=== PATIENT | male | born 1945 | race Caucasian/White ===

== ENCOUNTER 2017-12-08 11:14 | Inpatient (IN) | payer MEDICARE, BC ==
[~2017-12-08] VITALS: Ht 180.3 cm; Wt 90.0 kg
[2017-12-08 11:25] VITALS: BP 136/101; PULSE 116; RESP 32; TEMP 98.5; O2SAT 91
--- NOTE | 2017-12-08 11:28 | PD ---
HPI Chief Complaint: Fall Time Seen by Provider: 11:17 Travel History International Travel<30 days: No Contact w/Intl Traveler<30days: No Traveled to known affect area: No History of Present Illness HPI This 72-year-old male who presents via EMS for evaluation after fall. The patient reports that yesterday he tripped at home and fell, hitting his right hip against a table. He was unable to get off the floor throughout the night and a friend found him this morning. He is currently complaining of right hip pain as well as mild right wrist pain. He believes that his right wrist hit the ground in an effort to break his fall. He denies any head trauma or loss of consciousness. He is denying any headache, neck pain, chest pain, shortness breath, abdominal pain, back pain, numbness or tingling or weakness. He reports that he feels cold. He has no other complaints at this time. [facility] Social History Alcohol Use: No Tobacco Use: No Allergies-Medications (Allergen,Severity, Reaction): Coded Allergies: No Known Allergies (Unverified , 12/08/17) Reported Meds & Prescriptions Reported Meds & Active Scripts Active Reported Lisinopril 2.5 Mg Tab 2.5 Mg PO DAILY Carvedilol 3.125 Mg Tab 3.125 Mg PO BID Review of Systems Except as stated in HPI: all other systems reviewed are Neg Physical Exam Narrative GENERAL: Well-developed well-nourished male in no acute distress answering questions appropriately SKIN: Warm and dry. HEAD: Atraumatic. Normocephalic. EYES: Pupils equal and round. No scleral icterus. No injection or drainage. ENT: No nasal bleeding or discharge. Mucous membranes pink and moist. NECK: Trachea midline. No JVD. CARDIOVASCULAR: Regular rate and rhythm. No murmur appreciated. RESPIRATORY: No accessory muscle use. Clear to auscultation. Breath sounds equal bilaterally. GASTROINTESTINAL: Abdomen soft, non-tender, nondistended. Hepatic and splenic margins not palpable. MUSCULOSKELETAL: Right hip is externally rotated, tender to palpation of the right hip, mild tenderness to palpation of the right wrist with no obvious wrist deformity or range of motion limitation. Distal pulses are intact in the upper and lower extremities. NEUROLOGICAL: Awake and alert. No obvious cranial nerve deficits. Motor grossly within normal limits. Normal speech. PSYCHIATRIC: Appropriate mood and affect; insight and judgment normal. Data Data Last Documented VS Vital Signs Date Time Temp Pulse Resp B/P (MAP) Pulse Ox O2 Delivery O2 Flow Rate FiO2 12/08/17 12:20 97 24 143/71 (95) 96 Nasal Cannula 2.00 12/08/17 11:25 98.5 Orders Orders Hip, Uni(Ap&Lat) W Ap Pelvis (12/08/17 ) Ct Cerv Spine W/O Contrast (12/08/17 ) Complete Blood Count With Diff (12/08/17 11:25) Basic Metabolic Panel (Bmp) (12/08/17 11:25) Ct Brain W/O Iv Contrast(Rout) (12/08/17 ) Electrocardiogram (12/08/17 ) Ecg Monitoring (12/08/17 11:25) Creatine Kinase (Cpk) (12/08/17 11:25) Act Partial Throm Time (Ptt) (12/08/17 11:25) Prothrombin Time / Inr (Pt) (12/08/17 11:25) Iv Access Insert/Monitor (12/08/17 11:25) Wrist, Complete ([id number]) (12/08/17 ) Sodium Chlor 0.9% 1000 Ml Inj (Ns 1000 M (12/08/17 12:17) Chest, Single Ap (12/08/17 12:17) Morphine Inj (Morphine Inj) (12/08/17 12:30) Morphine Inj (Morphine Inj) (12/08/17 12:30) Ondansetron Inj (Zofran Inj) (12/08/17 12:30) Consult Orthopedic (12/08/17 ) Splint Or Brace Apply/Monitor (12/08/17 12:50) Wrist, Complete ([id number]) (12/08/17 ) Consult Hand Surgery (12/08/17 ) (Hub Use Only)Inp Phy Cons/Ref (12/08/17 ) Admit Order (Ed Use Only) (12/08/17 13:22) Labs Laboratory Tests Test 12/08/17 11:28 White Blood Count 9.9 TH/MM3 Red Blood Count 3.55 MIL/MM3 Hemoglobin 11.7 GM/DL Hematocrit 34.9 % Mean Corpuscular Volume 98.1 FL Mean Corpuscular Hemoglobin 32.9 PG Mean Corpuscular Hemoglobin Concent 33.6 % Red Cell Distribution Width 14.2 % Platelet Count 156 TH/MM3 Mean Platelet Volume 8.6 FL Neutrophils (%) (Auto) 83.9 % Lymphocytes (%) (Auto) 5.4 % Monocytes (%) (Auto) 7.8 % Eosinophils (%) (Auto) 1.8 % Basophils (%) (Auto) 1.1 % Neutrophils # (Auto) 8.3 TH/MM3 Lymphocytes # (Auto) 0.5 TH/MM3 Monocytes # (Auto) 0.8 TH/MM3 Eosinophils # (Auto) 0.2 TH/MM3 Basophils # (Auto) 0.1 TH/MM3 CBC Comment DIFF FINAL Differential Comment Prothrombin Time 10.7 SEC Prothromb Time International Ratio 1.1 RATIO Activated Partial Thromboplast Time 25.9 SEC Blood Urea Nitrogen 18 MG/DL Creatinine 0.92 MG/DL Random Glucose 104 MG/DL Calcium Level 8.2 MG/DL Sodium Level 135 MEQ/L Potassium Level 4.9 MEQ/L Chloride Level 105 MEQ/L Carbon Dioxide Level 20.6 MEQ/L Anion Gap 9 MEQ/L Estimat Glomerular Filtration Rate 81 ML/MIN Total Creatine Kinase 204 U/L [facility] Medical Decision Making Medical Screen Exam Complete: Yes Emergency Medical Condition: Yes Medical Record Reviewed: Yes Interpretation(s) Initial EKG reveals sinus rhythm with significant artifact secondary to the patient's shivering Differential Diagnosis Right hip fracture, dislocation, pelvic fracture, contusion, retroperitoneal hematoma Narrative Course The patient was placed on ECG monitoring pulse oximetry. A 12-lead EKG was obtained. Plan is for lab work, CT brain and cervical spine, right wrist and hip x-rays. CT cervical spine reveals CONCLUSION: 1. Moderate compression deformity involving C7 with retropulsion of the posterior wall measuring 3 mm which is indeterminate in age. Clinical correlation is recommended. 2. Mild compression deformity involving C6 which is also indeterminate in age. Discussed the findings with the patient who continues to deny any neck pain to suggest acute injury. He reports that 1994 he fractured his neck and this is most likely the etiology of his compression deformity on CT imaging. Hip x-ray reveals right intertrochanteric fracture. Discussed with Manny Powers PA-C contact officer for Dr. Massey would like the patient admitted to the hospitalist service with consultation to orthopedics, npo after midnight. X-ray of the right wrist reveals widening of the scapholunate space indicating scapholunate dissociation. I did alert the on-call hand surgeon and the patient will be placed in a volar wrist splint. Diagnosis Primary Impression: Intertrochanteric fracture of right hip Admitting Information Admitting Physician Requests: Admit Gianfranco Lagos Dec 08, 2017 11:28
[2017-12-08 11:53] LABS: AUTOMATED NEUTROPHIL # 8.3 TH/MM3 (1.8-7.7); BASOPHIL # 0.1 TH/MM3 (0-0.2); BASOPHIL % 1.1 % (0.0-2.0); EOSINOPHIL # 0.2 TH/MM3 (0-0.4); EOSINOPHIL % 1.8 % (0.0-4.0); HEMATOCRIT 34.9 % (39.0-51.0); HEMOGLOBIN 11.7 GM/DL (13.0-17.0); LYMPH % 5.4 % (9.0-44.0); LYMPHOCYTE # 0.5 TH/MM3 (1.0-4.8); MEAN CELL VOLUME 98.1 FL (80.0-100.0); MEAN CORPUSCULAR HEMOGLOBIN 32.9 PG (27.0-34.0); MEAN CORPUSCULAR HGB CONC 33.6 % (32.0-36.0); MEAN PLATELET VOLUME 8.6 FL (7.0-11.0); MONO % 7.8 % (0.0-8.0); MONOCYTE # 0.8 TH/MM3 (0-0.9); NEUT % 83.9 % (16.0-70.0); PLATELET COUNT 156 TH/MM3 (150-450); RED BLOOD COUNT 3.55 MIL/MM3 (4.50-5.90); RED CELL DISTRIBUTION WIDTH 14.2 % (11.6-17.2); WHITE BLOOD COUNT 9.9 TH/MM3 (4.0-11.0)
[2017-12-08 12:01] LABS: INTERNATIONAL NORMALIZED RATIO 1.1 RATIO; PROTHROMBIN TIME - PATIENT 10.7 SEC (9.8-11.6)
--- NOTE | 2017-12-08 12:12 | RADRPT ---
EXAM DATE/TIME: 12/08/2017 12:02 [facility] COMPARISON: No previous studies available for comparison. INDICATIONS : Fall. RADIATION DOSE: 42.06 CTDIvol (mGy) MEDICAL HISTORY : Hypertension. A Fib SURGICAL HISTORY : None. ENCOUNTER: Initial ACUITY: 1 day PAIN SCALE: 2/10 LOCATION: cranial TECHNIQUE: Multiple contiguous axial images were obtained of the head. Using automated exposure control and adj ustment of the mA and/or kV according to patient size, radiation dose was kept as low as reasonably a chievable to obtain optimal diagnostic quality images. DICOM format image data is available electro nically for review and comparison. FINDINGS: CEREBRUM: Diffuse cerebral atrophy is noted. No evidence of midline shift, mass lesion, hemorrhage or acute inf arction. No extra-axial fluid collections are seen. POSTERIOR FOSSA: The cerebellum and brainstem are intact. The 4th ventricle is midline. The cerebellopontine angle i s unremarkable. EXTRACRANIAL: The visualized portion of the orbits is intact. SKULL: The calvaria is intact. No evidence of skull fracture. CONCLUSION: 1. Diffuse cerebral atrophy. 2. No acute infarct, acute hemorrhage, mass effect or extra-axial fluid collections. Polo Morse MD on December 08, 2017 at 12:09 Board Certified Radiologist. This report was verified electronically.
[2017-12-08 12:17] LABS: BICARBONATE 20.6 MEQ/L (21.0-32.0); CALCIUM 8.2 MG/DL (8.5-10.1); CREATININE 0.92 MG/DL (0.60-1.30)
[2017-12-08] MEDS ORDERED: SODIUM CHLOR 0.9% 1000 ML INJ 1,000 ML IV SCH (12:17)
[2017-12-08] MEDS ORDERED: CARV3.12 PO (12:19)
[2017-12-08] MEDS ORDERED: LISI2.5T3 PO (12:19)
[2017-12-08 12:20] VITALS: BP 143/71; PULSE 97; RESP 24; O2SAT 96
[2017-12-08] MEDS ORDERED: MORPHINE SULFATE 2 MG/ML INJ IV PUSH ONE ×2 (12:30)
[2017-12-08] MEDS ORDERED: ONDANSETRON HCL 4 MG/2 ML VIAL IV PUSH ONE (12:30)
--- NOTE | 2017-12-08 12:35 | RADRPT ---
EXAM DATE/TIME: 12/08/2017 12:02 [facility] COMPARISON: No previous studies available for comparison. INDICATIONS : Fall. RADIATION DOSE: 21.38 CTDIvol (mGy) MEDICAL HISTORY : Hypertension. A Fib SURGICAL HISTORY : None. ENCOUNTER: Initial ACUITY: 1 day PAIN SCALE: 0/10 LOCATION: neck TECHNIQUE: Volumetric scanning of the cervical spine was performed. Multiplanar reconstructions in the sagittal, coronal and oblique axial planes were performed. Using automated exposure control and adjustment o f the mA and/or kV according to patient size, radiation dose was kept as low as reasonably achievable to obtain optimal diagnostic quality images. DICOM format image data is available electronically f or review and comparison. FINDINGS: There is moderate compression deformity involving C7 with retropulsion of the posterior wall measurin g 3 mm which is indeterminate in age. Clinical correlation is recommended. Mild compression deformity involving C6 is also noted and is indeterminate in age. There is grade I retrolisthesis of C3 in rel ation to C4. Mild spinal stenosis and moderate to severe bilateral foraminal narrowing is noted at C3 -4. There is moderate foraminal narrowing is also noted at C5-6 and C6-7. No prevertebral soft tissue swelling is noted. CONCLUSION: 1. Moderate compression deformity involving C7 with retropulsion of the posterior wall measuring 3 mm which is indeterminate in age. Clinical correlation is recommended. 2. Mild compression deformity involving C6 which is also indeterminate in age. 3. Grade I retrolisthesis of C3 in relation to C4. 4. Mild spinal stenosis and moderate to severe bilateral foraminal narrowing at C3-4. 5. Moderate bilateral foraminal narrowing at C5-6 and C6-7. Polo Morse MD on December 08, 2017 at 12:26 Board Certified Radiologist. This report was verified electronically.
--- NOTE | 2017-12-08 12:42 | RADRPT ---
EXAM DATE/TIME: 12/08/2017 11:37 [facility] COMPARISON: No previous studies available for comparison. INDICATIONS : Right hip pain, fell MEDICAL HISTORY : None. SURGICAL HISTORY : None. ENCOUNTER: Initial ACUITY: 1 day PAIN SCORE: Non-responsive. LOCATION: Right Hip FINDINGS: There is evidence of an acute intertrochanteric fracture of the right proximal femur. CONCLUSION: Acute intertrochanteric fracture of the right proximal femur. Polo Morse MD on December 08, 2017 at 12:39 Board Certified Radiologist. This report was verified electronically.
--- NOTE | 2017-12-08 12:45 | RADRPT ---
EXAM DATE/TIME: 12/08/2017 11:41 [facility] COMPARISON: No previous studies available for comparison. INDICATIONS : Right wrist pain, fell MEDICAL HISTORY : None. SURGICAL HISTORY : None. ENCOUNTER: Initial ACUITY: 1 day PAIN SCORE: Non-responsive. LOCATION: Right Wrist FINDINGS: There is widening of the scapholunate space indicating scapholunate dissociation. There is no acute f racture or dislocation of the right wrist. CONCLUSION: 1. Widening of the scapholunate space indicating scapholunate dissociation. 2. No acute fracture or dislocation. Polo Morse MD on December 08, 2017 at 12:42 Board Certified Radiologist. This report was verified electronically.
--- NOTE | 2017-12-08 12:51 | EKG ---
Date Performed: 12/08/2017 Time Performed: 11:29:27 PTAGE: 72 years EKG: ATRIAL FIBRILLATION LEFT BUNDLE BRANCH BLOCK ABNORMAL ECG NO PREVIOUS TRACING DOCTOR: Sumit Medina Interpretating Date/Time 12/08/2017 12:50:27
--- NOTE | 2017-12-08 13:15 | RADRPT ---
EXAM DATE/TIME: 12/08/2017 12:49 [facility] COMPARISON: No previous studies available for comparison. INDICATIONS : Cough. MEDICAL HISTORY : None. SURGICAL HISTORY : None. ENCOUNTER: Initial ACUITY: 1 day PAIN SCORE: 0/10 LOCATION: Bilateral chest FINDINGS: The heart is enlarged. Bibasilar streakiness is noted consistent with atelectasis and/or infiltrates. CONCLUSION: 1. Bibasilar streakiness consistent with atelectasis and/or infiltrates. 2. Cardiomegaly. Polo Morse MD on December 08, 2017 at 13:12 Board Certified Radiologist. This report was verified electronically.
--- NOTE | 2017-12-08 13:29 | HHI.HP ---
HPI Service [facility] Hospitalists Primary Care Physician No Primary Care Physician Admission Diagnosis right hip fracture Diagnoses: Chief Complaint: Right hip and right wrist pain s/p fall Travel History International Travel<30 Days: No Contact w/Intl Traveler <30 Da: No Traveled to Known Affected Are: No History of Present Illness Written by Roxana Martinez, acting as scribe for Dr. Yepez on 12/08/17 at 13: 24. This is a 72-year-old male with past medical history significant for hypertension who presents to [facility] ED with complaints of right wrist and right hip pain status post fall at home yesterday around 1600. Patient reports he tripped and fell onto his right side breaking the fall with his right hand. Patient states he was unable to get up and laid on the floor until 9:00 this morning. Patient denies any preceding symptoms prior to the fall such as dizziness, shortness of breath or chest pain. He denies any loss of consciousness or injury to his head. He denies any nausea vomiting or abdominal pain. States he's been feeling well prior to this incident. He reports on a good day he is able to walk 2-3 blocks. In the ED, x-ray was obtained right wrist revealing widening of the scapholunate space indicating scapholunate dissociation and of the right hip revealing acute intertrochanteric fracture of the right proximal hip. Past Family Social History Past Medical History Hypertension Hx of cervical fracture s/p fall down some stairs Past Surgical History No previous surgeries Reported Medications Lisinopril 2.5 Mg Tab 2.5 Mg PO DAILY Carvedilol 3.125 Mg Tab 3.125 Mg PO BID Allergies: Coded Allergies: No Known Allergies (Unverified , 12/08/17) Active Ordered Medications Active Medications Morphine Sulfate (Morphine Inj) 2 mg ONCE ONCE IV PUSH Last administered on 12/08at 12:28; Admin Dose 2 MG; Start 12/08/17 at 12:30; Stop 12/08/17 at 12:31; Status DC Morphine Sulfate (Morphine Inj) 2 mg ONCE ONCE IV PUSH Last administered on 12/08at 12:37; Admin Dose 2 MG; Start 12/08/17 at 12:30; Stop 12/08/17 at 12:31; Status DC Ondansetron HCl (Zofran Inj) 4 mg ONCE ONCE IV PUSH Last administered on at 12:28; Admin Dose 4 MG; Start 12/08/17 at 12:30; Stop 12/08/17 at 12:31; Status DC Sodium Chloride 1,000 ml @ 1,000 mls/hr Q1H IV Last administered on 12/08/17at 12 :27; Admin Dose 1,000 MLS/HR; Start 12/08/17 at 12:17; Stop 12/08/17 at 13:16; Status DC Family History Patient denies any significant family medical history. Social History Patient denies any tobacco use. Patient reports 2-3 beers several times per week. Physical Exam Vital Signs Vital Signs Date Time Temp Pulse Resp B/P (MAP) Pulse Ox O2 Delivery O2 Flow Rate FiO2 12/08/17 12:20 97 24 143/71 (95) 96 Nasal Cannula 2.00 12/08/17 11:55 96 Nasal Cannula 2.00 12/08/17 11:25 98.5 116 32 136/101 (113) 91 Room Air Physical Exam GENERAL: This is a well-nourished, well-developed elderly male patient, in no apparent distress. Awake and alert. SKIN: No rashes, ecchymoses or lesions. Cool and dry. HEAD: Atraumatic. Normocephalic. No temporal or scalp tenderness. EYES: Pupils equal round and reactive. Extraocular motions intact. No scleral icterus. No injection or drainage. ENT: Nose without bleeding or purulent drainage. Throat without erythema, tonsillar hypertrophy or exudate. Uvula midline. Airway patent. NECK: Trachea midline. No lymphadenopathy. Supple, nontender, no meningeal signs. CARDIOVASCULAR: Regular rate and rhythm without murmurs, gallops, or rubs. RESPIRATORY: Clear to auscultation. Breath sounds equal bilaterally. No wheezes , rales, or rhonchi. GASTROINTESTINAL: Abdomen soft, non-tender, nondistended. No hepato-splenomegaly , or palpable masses. No guarding. MUSCULOSKELETAL: Extremities without clubbing, cyanosis, or edema. Mild tenderness to palpation of right wrist. No obvious deformity appreciated. ROM not tested right hip. Right leg is externally rotated. Distal pulses are intact. NEUROLOGICAL: Awake and alert. Cranial nerves II through XII grossly intact. Motor and sensory grossly intact except for right lower extremity strength which is not tested. Normal speech. Laboratory Laboratory Tests Test 12/08/17 11:28 White Blood Count 9.9 Red Blood Count 3.55 Hemoglobin 11.7 Hematocrit 34.9 Mean Corpuscular Volume 98.1 Mean Corpuscular Hemoglobin 32.9 Mean Corpuscular Hemoglobin Concent 33.6 Red Cell Distribution Width 14.2 Platelet Count 156 Mean Platelet Volume 8.6 Neutrophils (%) (Auto) 83.9 Lymphocytes (%) (Auto) 5.4 Monocytes (%) (Auto) 7.8 Eosinophils (%) (Auto) 1.8 Basophils (%) (Auto) 1.1 Neutrophils # (Auto) 8.3 Lymphocytes # (Auto) 0.5 Monocytes # (Auto) 0.8 Eosinophils # (Auto) 0.2 Basophils # (Auto) 0.1 CBC Comment DIFF FINAL Differential Comment Prothrombin Time 10.7 Prothromb Time International Ratio 1.1 Activated Partial Thromboplast Time 25.9 Blood Urea Nitrogen 18 Creatinine 0.92 Random Glucose 104 Calcium Level 8.2 Sodium Level 135 Potassium Level 4.9 Chloride Level 105 Carbon Dioxide Level 20.6 Anion Gap 9 Estimat Glomerular Filtration Rate 81 Total Creatine Kinase 204 Result Diagram: 12/08/17 1128 12/08/17 1128 Imaging Last Impressions Chest X-Ray 12/08/17 1217 Signed Impressions: Service Date/Time: Friday, December 08, 2017 12:49 - CONCLUSION: 1. Bibasilar streakiness consistent with atelectasis and/or infiltrates. 2. Cardiomegaly. Polo Morse MD Wrist X-Ray 12/08/17 0000 Signed Impressions: Service Date/Time: Friday, December 08, 2017 11:41 - CONCLUSION: 1. Widening of the scapholunate space indicating scapholunate dissociation. 2. No acute fracture or dislocation. Polo Morse MD Hip and Pelvis X-Ray 12/08/17 0000 Signed Impressions: Service Date/Time: Friday, December 08, 2017 11:37 - CONCLUSION: Acute intertrochanteric fracture of the right proximal femur. Polo Morse MD Head CT 12/08/17 0000 Signed Impressions: Service Date/Time: Friday, December 08, 2017 12:02 - CONCLUSION: 1. Diffuse cerebral atrophy. 2. No acute infarct, acute hemorrhage, mass effect or extra-axial fluid collections. Polo Morse MD Cervical Spine CT 12/08/17 0000 Signed Impressions: Service Date/Time: Friday, December 08, 2017 12:02 - CONCLUSION: 1. Moderate compression deformity involving C7 with retropulsion of the posterior wall measuring 3 mm which is indeterminate in age. Clinical correlation is recommended. 2. Mild compression deformity involving C6 which is also indeterminate in age. 3. Grade I retrolisthesis of C3 in relation to C4. 4. Mild spinal stenosis and moderate to severe bilateral foraminal narrowing at C3-4. 5. Moderate bilateral foraminal narrowing at C5-6 and C6-7. MD Geri Fan VTE Risk Assessment Caprini VTE Risk Assessment: Mod/High Risk (score >= 2) Caprini Risk Assessment Model Point Value = 1 Point Value = 2 Point Value = 3 Point Value = 5 Age 41-60 Minor surgery BMI > 25 kg/m2 Swollen legs Varicose veins or History of unexplained or recurrent spontaneous Oral contraceptives or hormone replacement Sepsis (< 1 month) Serious lung disease, including pneumonia (< 1 month) Abnormal pulmonary function Acute myocardial infarction Congestive heart failure (< 1 month) History of inflammatory bowel disease Medical patient at bed rest Age 61-74 Arthroscopic surgery Major open surgery (> 45 min) Laparoscopic surgery (> 45 min) Malignancy Confined to bed (> 72 hours) Immobilizing plaster cast Central venous access Age >= 75 History of VTE Family history of VTE Factor V Leiden Prothrombin [id number] Lupus anticoagulant Anticardiolipin antibodies Elevated serum homocysteine Heparin-induced thrombocytopenia Other congenital or acquired thrombophilia Stroke (< 1 month) Elective arthroplasty Hip, pelvis, or leg fracture Acute spinal cord injury (< 1 month) Prophylaxis Regimen Total Risk Factor Score Risk Level Prophylaxis Regimen 0-1 Low Early ambulation 2 Moderate Order ONE of the following: *Sequential Compression Device (SCD) *Heparin 5000 units SQ BID 3-4 Higher Order ONE of the following medications: *Heparin 5000 units SQ TID *Enoxaparin/Lovenox 40 mg SQ daily (WT < 150 kg, CrCl > 30 mL/min) *Enoxaparin/Lovenox 30 mg SQ daily (WT < 150 kg, CrCl > 10-29 mL/min) *Enoxaparin/Lovenox 30 mg SQ BID (WT < 150 kg, CrCl > 30 mL/min) AND/OR *Sequential Compression Device (SCD) 5 or more Highest Order ONE of the following medications: *Heparin 5000 units SQ TID (Preferred with Epidurals) *Enoxaparin/Lovenox 40 mg SQ daily (WT < 150 kg, CrCl > 30 mL/min) *Enoxaparin/Lovenox 30 mg SQ daily (WT < 150 kg, CrCl > 10-29 mL/min) *Enoxaparin/Lovenox 30 mg SQ BID (WT < 150 kg, CrCl > 30 mL/min) AND *Sequential Compression Device (SCD) Assessment and Plan Assessment and Plan 72-year-old male with past medical history significant for hypertension who presents to [facility] ED with complaints of right wrist and right hip pain status post fall at home yesterday around 1600. Right hip pain secondary to acute right intertrochanteric proximal femur fracture s/p fall at home - xray right hip reveals acute intertrochanteric fracture of the right proximal femur, images reviewed by me. - ED physician discussed with orthopedic service web application dev specialist JOSE Mccormick for Dr. Negron who will see the patient in consultation and planned for surgical intervention tomorrow. Nothing by mouth after midnight. - Pain management with positive regimen - monitor CK and kidney function closely as patient down for 17hours following his injury Right wrist pain s/p fall - xray right wrist reveals widening of the scapholunate space indicating scapholunate dissociation, images reviewed by me. - ED physician discussed with on-call hand surgeon Dr. Lozada and patient placed in the volar wrist splint, will see patient in consultation, appreciate recommendations Hypertension - Uncontrolled presentation to ED, suspect situational, secondary to pain - resume home Coreg. Hold ACEI for now. - monitor BP and adjust treatment accordingly Compression fracture C6 and C7, indeterminate age - Patient reports history of cervical spine fracture in 1994 when he fell down a flight of stairs. - no complaints of neck pain at this time. Monitor. Anemia, normocytic, normochromic - continue to monitor DVT prophylaxis - bilateral SCD/BARBARA hose- pending the surgical intervention. -post-op DVT prophylaxis per ortho. the above was scribed by Ms.Shannon Martinez ( PA-C). I attest that I had a [id number] encounter with the patient and personally performed the physical exam and medical decision making and reviewed the findings and plan with the patient. Discussed Condition With ED physician, patient, cousin at the bedside Physician Certification 2 Midnight Certification Type: Admission for Inpatient Services Order for Inpatient Services The services are ordered in accordance with Medicare regulations or non- Medicare payer requirements, as applicable. In the case of services not specified as inpatient-only, they are appropriately provided as inpatient services in accordance with the 2-midnight benchmark. Estimated LOS (days): 3 3 days is the estimated time the patient will need to remain in the hospital, assuming treatment plan goals are met and no additional complications. Post-Hospital Plan: Not yet determined Roxana Martinez Dec 08, 2017 13:29 Blu Yepez MD Dec 08, 2017 14:22
--- NOTE | 2017-12-08 13:55 | RADRPT ---
EXAM DATE/TIME: 12/08/2017 13:21 [facility] COMPARISON: No previous studies available for comparison. INDICATIONS : Comparison for right wrist injury. MEDICAL HISTORY : None. SURGICAL HISTORY : None. ENCOUNTER: Initial ACUITY: 1 day PAIN SCORE: 0/10 LOCATION: Right wrist. FINDINGS: Three view examination of the left wrist demonstrates no soft tissue swelling, dislocation, or fractu re. The carpal bones are in normal alignment. The joint spaces are maintained. Bony mineralization is normal. CONCLUSION: 1. Negative examination of the wrist. Darwin Cortez MD on December 08, 2017 at 13:52 Board Certified Radiologist. This report was verified electronically.
[2017-12-08] MEDS ORDERED: MAGNESIUM HYDROXIDE SUSP 30 ML CUP PO PRN (15:30)
[2017-12-08] MEDS ORDERED: LACTULOSE SYRUP 20 GM/30 ML CUP PO PRN (15:30)
[2017-12-08] MEDS ORDERED: SENNOSIDES 8.6 MG TAB PO PRN (15:30)
[2017-12-08] MEDS ORDERED: BISACODYL 10 MG SUPP RECTAL PRN (15:30)
[2017-12-08] MEDS ORDERED: NALOXONE HCL 0.4 MG/ML AMP IV PUSH PRN (15:30)
[2017-12-08 16:16] VITALS: BP 122/59; PULSE 94; RESP 20; O2SAT 93
[2017-12-08] MEDS: MORPHINE SULFATE 2 MG/ML INJ IV PUSH PRN ×2 (17:21→21:56)
[2017-12-08 18:42] VITALS: BP 102/58; PULSE 97; RESP 18; TEMP 100.4; O2SAT 92
--- NOTE | 2017-12-08 19:18 | MB ---
cc: ALFRED BRAN DATE OF CONSULTATION: 12/08/2017 REASON FOR CONSULTATION: Right wrist pain. HISTORY OF PRESENT ILLNESS: Paco Olivera is a pleasant 72-year-old right hand dominant male who states that he fell at home yesterday on 12/07/2017. He states he did fall onto his right hip and right wrist. He denies any prior significant pain over the right wrist. He was admitted for surgical fixation of the hip fracture by orthopedics tomorrow. I was asked to evaluate his right wrist pain. He states he had taken aspirin but denies any other blood thinners. He denies any paresthesias in the right upper extremity. PAST MEDICAL HISTORY: 1. Hypertension. 2. History of cervical fracture. MEDICATIONS: 1. Lisinopril. 2. Carvedilol. ALLERGIES: NO KNOWN DRUG ALLERGIES. SOCIAL HISTORY: Denies tobacco or drug use. Reports social alcohol use. PHYSICAL EXAMINATION: The vital signs stable. Splint in place over the right upper extremity. Splint removed. The patient has no tenderness over the distal radius. He does have pain over the scapholunate interval. Good range of motion of the fingers. Sensation intact in the median, ulnar and radial distributions. 2+ radial pulse. Compartments soft and compressible. He does have ecchymosis over bilateral forearms. No pain over the left wrist. IMAGING STUDIES: X-rays of the of right wrist show widening of the scapholunate interval with some arthritis between the lunate and the radius. No evidence of acute fracture. Comparison x-rays of the left wrist were then reviewed, which show no widening of the scapholunate interval. No significant abnormalities. ASSESSMENT AND PLAN: 72-year-old right hand dominant male admitted for open reduction internal fixation of a hip fracture and noted to have scapholunate widening on the wrist x-ray. The patient was replaced into a splint. I recommend he be non-weightbearing on the right wrist when he recovers from his hip fracture. I can see him in the office and may consider an MRI but discussed with the patient I likely would not recommend any acute surgical fixation over the wrist. He may consider corticosteroid injection in the future. The patient will follow up once he recovers from his hip fracture. MD PLACIDO Alberts/JCTiff /6:30 PM /6:46 PM MTDJoyce
[2017-12-08 20:00] VITALS: BP 104/57; PULSE 89; RESP 17; TEMP 98.1; O2SAT 96
[2017-12-08] MEDS: DOCUSATE SODIUM 50 MG/SENNA 8.6 MG TAB PO SCH (20:46)
[2017-12-08] MEDS: CARVEDILOL 3.125 MG TAB PO SCH (20:46)
[2017-12-08] MEDS ORDERED: ONDANSETRON HCL 4 MG/2 ML VIAL IV PUSH PRN (22:00)
[2017-12-08] MEDS ORDERED: SODIUM CHLOR 0.9% 1000 ML INJ 1,000 ML IV ONE (23:00)
[2017-12-09] VITALS: BP 101/59; PULSE 88; RESP 16; TEMP 98.8; O2SAT 94
[2017-12-09] MEDS ORDERED: ACETAMINOPHEN/HYDROcodone 325 MG/5 MG TAB PO PRN (01:30)
[2017-12-09] MEDS: HYDROmorphone HCL PF 2 MG/ML VIAL IV PUSH PRN (01:41)
[2017-12-09] MEDS ORDERED: POVIDONE IODINE 5% (ANTISEPSIS KIT) 4 APPLICATIONS EACH NARE PRN (03:15)
[2017-12-09] MEDS ORDERED: LACTATED RINGER'S 1000 ML IV PRN (03:15)
[2017-12-09] MEDS ORDERED: SODIUM CHLORID 0.9% 500 ML IV PRN (03:15)
[2017-12-09] MEDS ORDERED: CHLORHEXIDINE GLUCONATE 2 % 1 PACK (2 CLOTHS) TOPICAL PRN (03:15)
[2017-12-09] MEDS ORDERED: METOPROLOL TARTRATE 25 MG TAB PO PRN (03:15)
[2017-12-09 03:56] VITALS: BP 103/65; PULSE 92; RESP 17; TEMP 98.7; O2SAT 94
[2017-12-09 04:50] LABS: AUTOMATED NEUTROPHIL # 5.7 TH/MM3 (1.8-7.7); BASOPHIL # 0.1 TH/MM3 (0-0.2); BASOPHIL % 0.9 % (0.0-2.0); EOSINOPHIL # 0.7 TH/MM3 (0-0.4); EOSINOPHIL % 8.6 % (0.0-4.0); HEMATOCRIT 30.1 % (39.0-51.0); HEMOGLOBIN 10.5 GM/DL (13.0-17.0); LYMPH % 8.4 % (9.0-44.0); LYMPHOCYTE # 0.7 TH/MM3 (1.0-4.8); MEAN CELL VOLUME 99.2 FL (80.0-100.0); MEAN CORPUSCULAR HEMOGLOBIN 34.7 PG (27.0-34.0); MEAN PLATELET VOLUME 9.2 FL (7.0-11.0); MONO % 10.7 % (0.0-8.0); MONOCYTE # 0.9 TH/MM3 (0-0.9); NEUT % 71.4 % (16.0-70.0); PLATELET COUNT 144 TH/MM3 (150-450); RED BLOOD COUNT 3.03 MIL/MM3 (4.50-5.90); RED CELL DISTRIBUTION WIDTH 14.1 % (11.6-17.2); WHITE BLOOD COUNT 7.9 TH/MM3 (4.0-11.0)
[2017-12-09 05:14] LABS: BICARBONATE 24.2 MEQ/L (21.0-32.0); CALCIUM 8.1 MG/DL (8.5-10.1); CREATININE 0.99 MG/DL (0.60-1.30)
[2017-12-09] MEDS: CARVEDILOL 3.125 MG TAB PO SCH ×2 (06:11→22:28)
--- NOTE | 2017-12-09 06:41 | PD.ORT.PN ---
Subjective Subjective Remarks s/p fall at home. right hip pain. no other complaints. Objective Vitals Vital Signs Date Time Temp Pulse Resp B/P (MAP) Pulse Ox O2 Delivery O2 Flow Rate FiO2 12/09/17 03:56 98.7 92 17 103/65 (78) 94 12/09/17 00:00 98.8 88 16 101/59 (73) 94 12/08/17 20:00 98.1 89 17 104/57 (73) 96 12/08/17 18:42 100.4 97 18 102/58 (73) 92 12/08/17 16:32 12/08/17 16:16 94 20 122/59 (80) 93 Nasal Cannula 2.00 12/08/17 12:20 97 24 143/71 (95) 96 Nasal Cannula 2.00 12/08/17 11:55 96 Nasal Cannula 2.00 12/08/17 11:25 98.5 116 32 136/101 (113) 91 Room Air I/O 12/08/17 12/08/17 12/08/17 12/09/17 12/09/17 12/09/17 07:00 15:00 23:00 07:00 15:00 23:00 Intake Total 1000 ml 360 ml 588 ml Output Total 300 ml 300 ml Balance 1000 ml 60 ml 288 ml Intake Oral 360 ml 0 ml IV Total 1000 ml 588 ml Output Urine Total 300 ml 300 ml Result Diagram: 12/09/17 0404 12/09/17 0404 Other Results Laboratory Tests Test 12/08/17 11:28 Prothromb Time International Ratio 1.1 RATIO Prothrombin Time 10.7 SEC (9.8-11.6) Imaging Last 24 hours Impressions Chest X-Ray 12/08/17 1217 Signed Impressions: Service Date/Time: Friday, December 08, 2017 12:49 - CONCLUSION: 1. Bibasilar streakiness consistent with atelectasis and/or infiltrates. 2. Cardiomegaly. Polo Morse MD Objective Remarks RLE: leg externally rotated. nvi. pain with motion Assessment & Plan Assessment and Plan 1) right Intertroch Hip Fx -npo -surgery this AM -sign consents Pawan Rucker/[employer] PA Dec 09, 2017 06:41
[2017-12-09] MEDS ORDERED: BUPIVACAINE/EPINEPHRINE 0.25% PF 10 ML VIAL ONE (07:01)
[2017-12-09] MEDS ORDERED: GENTAMICIN SULFATE 80 MG/2 ML VIAL ONE (07:01)
[2017-12-09] MEDS ORDERED: VANCOMYCIN HCL 1000 MG VIAL ONE (07:01)
[2017-12-09] MEDS ORDERED: SODIUM CHLOR 0.9% 250 ML INJ 250 ML ONE (07:02)
[2017-12-09] MEDS ORDERED: XARE10TA PO (07:11)
[2017-12-09] MEDS ORDERED: HYDR-3580 PO (07:11)
[2017-12-09] MEDS ORDERED: ceFAZolin INJ 1,000 MG VIAL ONE (07:41)
--- NOTE | 2017-12-09 08:07 | PD.OP ---
cc: Iron Massey MD Operative Report Date of Surgery: Dec 09, 2017 Preoperative Diagnosis: Right hip intertrochanteric fracture Postoperative Diagnosis: Procedure: Right hip reduction and intramedullary nail fixation Anesthesia: Gen. Surgeon: Iron Massey Tread Builder(s): EL Crews PA-C The surgical procedure was assisted by my physician medical staff assistant. My P.A. presence was necessary throughout this case for the manipulation and positioning of the surgical extremity. My P.A. was assisting me throughout the duration of this procedure. The skill set of a physician medical staff assistant was medically necessary to complete this procedure. During the surgical case the radiation protection technician was working at the back table and the physician medical staff assistant was directly assisting me. Operation and Findings: Implants used: [12]mm 125 Synthes TFNA short troch nail Plan of activity: 50% weightbearing right leg 3 weeks, then full weightbearing Patient was seen and evaluated preoperatively. The patient has significant hip pain from intertrochanteric hip fracture. The risk and benefits of surgery were discussed in depth with the patient to include bleeding infection nonunion malunion and need for hip replacement painful hardware as well as medical competitions including but not stroke heart attack and . Informed consent was obtained. Operative site was marked. Patient was brought to the operating room and placed on fracture table. IV sedation was administered by anesthesiologist. Timeout procedure was performed. Hip and leg were prepped with alcohol followed by DuraPrep and draped in the usual sterile fashion. IV antibiotics were given prior to incision. Procedure began with reduction of fracture. Traction was applied. The leg was manipulated to achieve reduction. Excellent reduction was achieved. Fluoroscopy was used to confirm reduction. A three inch incision was made proximal to the trochanter. Subcutaneous tissue was dissected bluntly. Guidepin was placed at the tip of the trochanter and advanced into the femoral canal. Fluoroscopy confirmed appropriate guidepin placement. A opening reamer was placed over the guidepin. The Synthes TFNA nail was attached to the insertion handle. Nail was now placed through the tip of the trochanter into the femoral canal. Fluoroscopy confirmed appropriate nail placement. A second incision was made over the lateral thigh. Cannulas were placed through the insertion handle down to the femur. Guidepin was now placed through the femoral nail into the center of the femoral head. Fluoroscopy confirmed appropriate guidepin placement. Screw length was measured. Cannulated drill was placed over the guidepin. Appropriate length lag screw was now placed. Traction was released and compression was applied. The set screw was now tightened in dynamic mode. Using the insertion handle as a guide a distal interlocking screw was drilled and placed. Final fluoroscopy revealed well aligned fracture with well-placed hardware. Incision was closed with 3-0 Vicryl and dae. Sterile dressings were applied. Patient was awakened and transferred to recovery room. Iron Massey MD Dec 09, 2017 08:07
[2017-12-09] MEDS ORDERED: diphenhydrAMINE HCL 25 MG CAP PO PRN (08:15)
[2017-12-09] MEDS ORDERED: MORPHINE SULFATE 2 MG/ML INJ IV PUSH PRN (08:15)
[2017-12-09] MEDS ORDERED: SUGAMMADEX SODIUM 200 MG/2 ML VIAL IV PUSH ONE (08:29)
--- NOTE | 2017-12-09 08:40 | MB ---
cc: CRISTY OTTO DATE OF ADMISSION 12/08/2017 DATE OF CONSULTATION 12/09/2017 REASON FOR CONSULTATION Right hip intertrochanteric fracture. CONSULTING PHYSICIAN Dr. Yepez. HISTORY Paco is a 72-year-old male who had a fall at home yesterday. He landed on his right arm and right hip. He had immediate right hip pain. He complains of right hip pain and right wrist pain. He presented to the emergency room. X-rays reveal a right hip intertrochanteric fracture. He was also found to have widening of the right wrist scapholunate interval. He is currently awake and alert on the orthopedic floor. He complains mostly right hip pain. The pain is worse with movement. PAST MEDICAL HISTORY ILLNESSES Hypertension. SURGERIES None. MEDICATIONS 1. Lisinopril. 2. Carvedilol. ALLERGIES None. FAMILY HISTORY Noncontributory. SOCIAL HISTORY The patient denies tobacco or drug use. He does drink alcohol. REVIEW OF SYSTEMS The patient denies headache, visual changes, neck pain, chest pain, shortness of breath, abdominal pain, nausea, vomiting or recent weight loss, fever, chills, numbness or tingling of extremities or recent weight loss. He complains of right hip pain. He also complains of mild right wrist pain. The pain is worse with movement. PHYSICAL EXAMINATION GENERAL: The patient is a well-developed, well-nourished 72-year male. He is in no acute distress. He is awake and alert. He appears well-developed, well-nourished. VITAL SIGNS: Temperature 98.7, pulse 92, respirations 17, blood pressure 103/65, O2 sat 94% on 2 liters nasal cannula. HEAD: The patient is normocephalic. Pupils are equal. NECK: Soft, nontender. Trachea is midline. ABDOMEN: Soft, nontender, nondistended. EXTREMITIES: Examination of right arm reveals no pain with shoulder or elbow or motion. He has good capillary refill in his fingers. He is in a volar wrist splint. The skin is intact. Examination of the left arm reveals no pain with shoulder, elbow or wrist motion. He has intact sensation in all fingers. He has good capillary refill in all fingers. Skin is intact. Radial pulse is palpable. Examination of the left leg reveals no pain with hip, knee or ankle motion. Skin is intact. Dorsalis pedis pulse is palpable. Sensation is intact and the left foot. Examination of the right leg reveals pain with any hip motion. He has no tenderness around his knee, tibia or ankle. Skin is intact. Dorsalis pedis pulse is palpable. X-RAYS X-rays of the right hip were reviewed. X-rays reveal a mildly displaced right hip intertrochanteric fracture. IMPRESSION 1. Right hip intertrochanteric fracture. 2. Right wrist scapholunate interval widening. PLAN The treatment options were discussed with the patient. At this point I would recommend surgery for reduction with intramedullary fixation of right hip. The risks of surgery include bleeding, infection, injury arteries, nerves, blood vessels, nonunion, malunion, painful hardware, need for hip replacement as well as medical complications including blood clot, stroke, heart attack and . All questions were answered. I will plan on surgery today. Hand surgery has been consulted for treatment of right wrist injury. All questions were answered. A mid-level provider in my office, nurse practitioner or PA, may see this patient on a follow-up basis and continue to implement the objective of this plan including: Starting or adjusting medications, injections of muscle, tendon, bursa or joints, cast application, orthotic or brace application, physical therapy, further radiographic studies including x-ray, MRI, CT, ultrasounds or bone scan, vascular studies, neurologic studies, or other specialist consultations, and proceeding with surgical management as appropriate. MD AQUILINO Coles/JHONY /7:59 AM /8:16 AM
[2017-12-09] MEDS ORDERED: DO NOT ADM ANY ANTICOAGULANT DRUGS PRN (08:45)
[2017-12-09] MEDS ORDERED: LACTATED RINGER'S 1000 ML INJ 500 ML IV ONE (08:45)
[2017-12-09] MEDS: DOCUSATE SODIUM 50 MG/SENNA 8.6 MG TAB PO SCH ×2 (09:00→22:28)
[2017-12-09] MEDS ORDERED: INFLUENZA VIRUS VACCINE (QUADRIVALENT) 0.5 ML SYR IM ONE (09:00)
[2017-12-09] MEDS: CALCIUM/VITAMIN D 250 MG/125 U TAB PO SCH ×3 (09:00→16:48)
[2017-12-09] MEDS ORDERED: *morphine SULFATE 4 MG/ML PERIprocedure ONLY ONE ×2 (09:05→09:29)
[2017-12-09] MEDS ORDERED: *RESP: ALBUTEROL 2.5 MG/3 ML NEB (PRN) PERIprocedural Use ONLY NEB ONE (09:06)
[2017-12-09] MEDS ORDERED: ACETAMINOPHEN 1000 MG/100 ML 100 ML IV ONE ×2 (09:35→10:00)
[2017-12-09] MEDS ORDERED: KETOROLAC TROMETHAMINE 30 MG/ML (IVP) VIAL ONE (09:35)
--- NOTE | 2017-12-09 09:40 | RADRPT ---
EXAM DATE/TIME: 12/09/2017 07:56 [facility] COMPARISON: No previous studies available for comparison. INDICATIONS : ORIF right hip fracture. MEDICAL HISTORY : Unobtainable. SURGICAL HISTORY : Unobtainable. ENCOUNTER: Subsequent ACUITY: 2 days PAIN SCORE: Non-responsive. LOCATION: Right hip FINDINGS: 4 fluoroscopic views of the right hip demonstrate intramedullary nixon and compression screw fixation o f right femoral neck fracture. Hardware appears intact and well-positioned. There is near-anatomic al ignment. CONCLUSION: 1. Status post right hip ORIF, as above. Mitchel Sadler MD on December 09, 2017 at 9:37 Board Certified Radiologist. This report was verified electronically.
[2017-12-09] MEDS ORDERED: ERGOCALCIFEROL (VIT D2) 50,000 UNIT CAP PO ONE (09:45)
[2017-12-09] MEDS ORDERED: KETOROLAC TROMETHAMINE 30 MG/ML (IVP) VIAL IV PUSH ONE (10:00)
--- NOTE | 2017-12-09 11:57 | HHI.PR ---
Subjective Remarks Follow-up right hip fracture 12/09/17-patient seen and examined, status post Right hip reduction and intramedullary nail fixation and pain is currently controlled. Objective Vitals Vital Signs Date Time Temp Pulse Resp B/P (MAP) Pulse Ox O2 Delivery O2 Flow Rate FiO2 12/09/17 09:45 98.4 98 24 123/63 (83) 94 Nasal Cannula 3 12/09/17 09:30 102 24 101/59 (73) 95 Nasal Cannula 3 12/09/17 09:15 96 18 131/58 (82) 94 Nasal Cannula 3 12/09/17 09:00 105 24 118/69 (85) 95 Nasal Cannula 3 12/09/17 08:45 96 17 123/59 (80) 92 Nasal Cannula 3 12/09/17 08:38 Nasal Cannula 3 12/09/17 08:30 92 20 125/58 (80) 93 Nasal Cannula 4 12/09/17 08:23 98.1 94 22 116/55 (75) 92 Nasal Cannula 4 12/09/17 03:56 98.7 92 17 103/65 (78) 94 12/09/17 00:00 98.8 88 16 101/59 (73) 94 12/08/17 20:00 98.1 89 17 104/57 (73) 96 12/08/17 18:42 100.4 97 18 102/58 (73) 92 12/08/17 16:32 12/08/17 16:16 94 20 122/59 (80) 93 Nasal Cannula 2.00 12/08/17 12:20 97 24 143/71 (95) 96 Nasal Cannula 2.00 I/O 12/08/17 12/08/17 12/08/17 12/09/17 12/09/17 12/09/17 07:00 15:00 23:00 07:00 15:00 23:00 Intake Total 1000 ml 360 ml 588 ml 2130 ml Output Total 300 ml 300 ml 50 ml Balance 1000 ml 60 ml 288 ml 2080 ml Intake Oral 360 ml 0 ml 30 ml IV Total 1000 ml 588 ml 1100 ml Other 1000 ml Output Urine Total 300 ml 300 ml Estimated Blood Loss 50 ml # Voids 0 Result Diagram: 12/09/17 0404 12/09/17 0404 Imaging Last Impressions Hip X-Ray 12/09/17 0000 Signed Impressions: Service Date/Time: Saturday, December 09, 2017 07:56 - CONCLUSION: 1. Status post right hip ORIF, as above. Mitchel Sadler MD Chest X-Ray 12/08/17 1217 Signed Impressions: Service Date/Time: Friday, December 08, 2017 12:49 - CONCLUSION: 1. Bibasilar streakiness consistent with atelectasis and/or infiltrates. 2. Cardiomegaly. Polo Morse MD Wrist X-Ray 12/08/17 0000 Signed Impressions: Service Date/Time: Friday, December 08, 2017 13:21 - CONCLUSION: 1. Negative examination of the wrist. Darwin Cortez MD Hip and Pelvis X-Ray 12/08/17 0000 Signed Impressions: Service Date/Time: Friday, December 08, 2017 11:37 - CONCLUSION: Acute intertrochanteric fracture of the right proximal femur. Polo Morse MD Head CT 12/08/17 0000 Signed Impressions: Service Date/Time: Friday, December 08, 2017 12:02 - CONCLUSION: 1. Diffuse cerebral atrophy. 2. No acute infarct, acute hemorrhage, mass effect or extra-axial fluid collections. Polo Morse MD Cervical Spine CT 12/08/17 0000 Signed Impressions: Service Date/Time: Friday, December 08, 2017 12:02 - CONCLUSION: 1. Moderate compression deformity involving C7 with retropulsion of the posterior wall measuring 3 mm which is indeterminate in age. Clinical correlation is recommended. 2. Mild compression deformity involving C6 which is also indeterminate in age. 3. Grade I retrolisthesis of C3 in relation to C4. 4. Mild spinal stenosis and moderate to severe bilateral foraminal narrowing at C3-4. 5. Moderate bilateral foraminal narrowing at C5-6 and C6-7. Polo Morse MD Objective Remarks GENERAL: NAD SKIN: Warm and dry. HEAD: Normocephalic. EYES: No scleral icterus. No injection or drainage. NECK: Supple, trachea midline. No JVD or lymphadenopathy. CARDIOVASCULAR: Regular rate and rhythm without murmurs, gallops, or rubs. RESPIRATORY: Breath sounds equal bilaterally. No accessory muscle use. GASTROINTESTINAL: Abdomen soft, non-tender, nondistended. MUSCULOSKELETAL: No cyanosis, or edema. Right hip repair, dressing applied. Neurovascular intact BACK: Nontender without obvious deformity. No CVA tenderness. Procedures s/p Right hip reduction and intramedullary nail fixation 12/09/17 A/P Problem List: (1) Intertrochanteric fracture of right hip ICD Code: S72.141A - Displaced intertrochanteric fracture of right femur, initial encounter for closed fracture Status: Acute Assessment and Plan 72-year-old man with Right hip pain secondary to acute right intertrochanteric proximal femur fracture s/p fall at home - s/p Right hip reduction and intramedullary nail fixation 12/09/17 Management per orthopedic surgery Continue current postop care PT consult to treat and eval Right wrist pain s/p fall - xray right wrist reveals widening of the scapholunate space indicating scapholunate dissociation, images reviewed by me. - Appreciate input from hand surgery and recommended outpatient follow-up Hypertension - Continue home Coreg. Resume ACEI accordingly. Compression fracture C6 and C7, indeterminate age - Patient reports history of cervical spine fracture in 1994 when he fell down a flight of stairs. - no complaints of neck pain at this time. Monitor. Anemia, normocytic, normochromic - continue to monitor DVT prophylaxis - Sohan Mandel MD Dec 09, 2017 11:57
[2017-12-09 12:00] VITALS: BP 88/59; PULSE 90; RESP 18; TEMP 97.4; O2SAT 99
[2017-12-09 19:28] VITALS: BP 94/56; PULSE 80; RESP 16; TEMP 96.7; O2SAT 97
[2017-12-09 22:06] VITALS: O2SAT 98
[2017-12-10] VITALS: BP 113/69; PULSE 77; RESP 16; TEMP 96.3; O2SAT 91
[2017-12-10 06:00] VITALS: BP 106/63; PULSE 80; RESP 16; TEMP 97.2; O2SAT 92
[2017-12-10 06:25] LABS: HEMATOCRIT 26.3 % (39.0-51.0); HEMOGLOBIN 8.8 GM/DL (13.0-17.0)
--- NOTE | 2017-12-10 06:52 | PD.ORT.PN ---
Subjective Subjective Remarks Resting comfortably with no new complaints Objective Vitals Vital Signs Date Time Temp Pulse Resp B/P (MAP) Pulse Ox O2 Delivery O2 Flow Rate FiO2 12/10/17 06:00 97.2 80 16 106/63 (77) 92 12/10/17 00:00 96.3 77 16 113/69 (84) 91 12/09/17 22:06 98 Nasal Cannula 2.00 12/09/17 19:28 96.7 80 16 94/56 (69) 97 12/09/17 12:00 97.4 90 18 88/59 (69) 99 12/09/17 09:45 98.4 98 24 123/63 (83) 94 Nasal Cannula 3 12/09/17 09:30 102 24 101/59 (73) 95 Nasal Cannula 3 12/09/17 09:15 96 18 131/58 (82) 94 Nasal Cannula 3 12/09/17 09:00 105 24 118/69 (85) 95 Nasal Cannula 3 12/09/17 08:45 96 17 123/59 (80) 92 Nasal Cannula 3 12/09/17 08:38 Nasal Cannula 3 12/09/17 08:30 92 20 125/58 (80) 93 Nasal Cannula 4 12/09/17 08:23 98.1 94 22 116/55 (75) 92 Nasal Cannula 4 I/O 12/09/17 12/09/17 12/09/17 12/10/17 12/10/17 12/10/17 07:00 15:00 23:00 07:00 15:00 23:00 Intake Total 588 ml 2130 ml 1200 ml Output Total 300 ml 50 ml Balance 288 ml 2080 ml 1200 ml Intake Oral 0 ml 30 ml 1200 ml IV Total 588 ml 1100 ml Other 1000 ml Output Urine Total 300 ml Estimated Blood Loss 50 ml # Voids 0 4 Result Diagram: 12/10/17 0408 12/09/17 0404 Imaging Last 24 hours Impressions Chest X-Ray 12/08/17 1217 Signed Impressions: Service Date/Time: Friday, December 08, 2017 12:49 - CONCLUSION: 1. Bibasilar streakiness consistent with atelectasis and/or infiltrates. 2. Cardiomegaly. Polo Morse MD Objective Remarks Right lower extremity: Clean dry dressings intact. Mild swelling. Distally intact sensation good capillary refills. Active dorsiflexion and plantar flexion of foot Assessment & Plan Assessment and Plan Right intertrochanteric femur fracture status post IM nail POD 1 PT 50% weightbearing right lower extremity Daily dressing changes beginning POD 2 with Xeroform Primapore Lovenox Incentive spirometry Platform walker with nonweightbearing to right wrist. Case management for rehabilitation placement Follow-up appointment with Dr. Massey or PA in 2 weeks Alok Powers Jr. Dec 10, 2017 06:52
[2017-12-10 08:00] VITALS: BP 97/63; PULSE 71; RESP 18; TEMP 96.7; O2SAT 91
[2017-12-10] MEDS ORDERED: INFLUENZA VIRUS VACCINE (QUADRIVALENT) 0.5 ML SYR IM ONE (09:00)
[2017-12-10] MEDS: DOCUSATE SODIUM 50 MG/SENNA 8.6 MG TAB PO SCH ×2 (09:14→21:29)
[2017-12-10] MEDS: CARVEDILOL 3.125 MG TAB PO SCH ×2 (09:14→21:29)
[2017-12-10] MEDS: CALCIUM/VITAMIN D 250 MG/125 U TAB PO SCH ×3 (09:14→16:58)
[2017-12-10] MEDS: ENOXAPARIN SODIUM 30 MG/0.3 ML SYRINGE SQ SCH (09:14)
[2017-12-10] MEDS: CHOLECALCIFEROL (VIT D3) 5000 UNIT CAP PO SCH (09:16)
--- NOTE | 2017-12-10 10:58 | HHI.PR ---
Subjective Remarks Follow-up right hip fracture 12/09/17-patient seen and examined, status post Right hip reduction and intramedullary nail fixation and pain is currently controlled. 12/10/17-patient seen and examined, resting comfortably in the chair. Denies any significant right hip pain. No acute event overnight. Objective Vitals Vital Signs Date Time Temp Pulse Resp B/P (MAP) Pulse Ox O2 Delivery O2 Flow Rate FiO2 12/10/17 10:28 Nasal Cannula 2.00 12/10/17 08:00 96.7 71 18 97/63 (74) 91 12/10/17 06:00 97.2 80 16 106/63 (77) 92 12/10/17 00:00 96.3 77 16 113/69 (84) 91 12/09/17 22:06 98 Nasal Cannula 2.00 12/09/17 19:28 96.7 80 16 94/56 (69) 97 12/09/17 12:00 97.4 90 18 88/59 (69) 99 I/O 12/09/17 12/09/17 12/09/17 12/10/17 12/10/17 12/10/17 06:59 14:59 22:59 06:59 14:59 22:59 Intake Total 588 ml 2130 ml 1200 ml Output Total 300 ml 50 ml Balance 288 ml 2080 ml 1200 ml Intake Oral 0 ml 30 ml 1200 ml IV Total 588 ml 1100 ml Other 1000 ml Output Urine Total 300 ml Estimated Blood Loss 50 ml # Voids 0 4 Result Diagram: 12/10/17 0408 12/09/17 0404 Objective Remarks GENERAL: NAD SKIN: Warm and dry. HEAD: Normocephalic. EYES: No scleral icterus. No injection or drainage. NECK: Supple, trachea midline. No JVD or lymphadenopathy. CARDIOVASCULAR: Regular rate and rhythm without murmurs, gallops, or rubs. RESPIRATORY: Breath sounds equal bilaterally. No accessory muscle use. GASTROINTESTINAL: Abdomen soft, non-tender, nondistended. MUSCULOSKELETAL: No cyanosis, or edema. Right hip repair, dressing applied. Neurovascular intact BACK: Nontender without obvious deformity. No CVA tenderness. Procedures s/p Right hip reduction and intramedullary nail fixation 12/09/17 A/P Problem List: (1) Intertrochanteric fracture of right hip ICD Code: S72.141A - Displaced intertrochanteric fracture of right femur, initial encounter for closed fracture Status: Acute Assessment and Plan 72-year-old man with Right hip pain secondary to acute right intertrochanteric proximal femur fracture s/p fall at home - s/p Right hip reduction and intramedullary nail fixation 12/09/17 Management per orthopedic surgery Pain management accordingly PT to treat and eval Right wrist pain s/p fall - xray right wrist reveals widening of the scapholunate space indicating scapholunate dissociation, images reviewed by me. - Appreciate input from hand surgery and recommended outpatient follow-up Hypertension - Continue home Coreg. Resume ACEI accordingly. Compression fracture C6 and C7, indeterminate age - Patient reports history of cervical spine fracture in 1994 when he fell down a flight of stairs. - no complaints of neck pain at this time. Monitor. Anemia, normocytic, normochromic - continue to monitor DVT prophylaxis - Lovenox Discharge Planning Likely discharged to SNF with the next 24 hours Sohan Cooper MD Dec 10, 2017 10:58
[2017-12-10] MEDS: ACETAMINOPHEN/HYDROcodone 325 MG/7.5 MG TAB PO PRN ×2 (11:38→21:32)
[2017-12-10 12:00] VITALS: BP 93/58; PULSE 94; RESP 18; TEMP 96.8; O2SAT 94
[2017-12-10 16:00] VITALS: BP 113/72; PULSE 98; RESP 18; TEMP 98; O2SAT 92
[2017-12-10] MEDS: HYDROmorphone HCL PF 2 MG/ML VIAL IV PUSH PRN (16:57)
[2017-12-10 20:00] VITALS: BP 100/56; PULSE 88; RESP 16; TEMP 95.6; O2SAT 93
[2017-12-11] VITALS: BP 117/58; PULSE 95; RESP 16; TEMP 97; O2SAT 91
[2017-12-11 04:00] VITALS: BP 101/62; PULSE 85; RESP 16; TEMP 96.2; O2SAT 92
[2017-12-11] MEDS: ACETAMINOPHEN/HYDROcodone 325 MG/7.5 MG TAB PO PRN ×2 (06:40→11:25)
--- NOTE | 2017-12-11 06:43 | PD.ORT.PN ---
Subjective Subjective Remarks POD 2 s/p IMN right hip doign well. reports pain yesterday but got out of bed with therapy Objective Vitals Vital Signs Date Time Temp Pulse Resp B/P (MAP) Pulse Ox O2 Delivery O2 Flow Rate FiO2 12/11/17 04:00 96.2 85 16 101/62 (75) 92 12/11/17 00:00 97.0 95 16 117/58 (77) 91 12/10/17 20:00 95.6 88 16 100/56 (71) 93 12/10/17 17:27 18 12/10/17 16:00 98.0 98 18 113/72 (86) 92 12/10/17 12:43 18 12/10/17 12:00 96.8 94 18 93/58 (70) 94 12/10/17 10:28 Nasal Cannula 2.00 12/10/17 08:00 96.7 71 18 97/63 (74) 91 I/O 12/10/17 12/10/17 12/10/17 12/11/17 12/11/17 12/11/17 07:00 15:00 23:00 07:00 15:00 23:00 Intake Total 700 ml 400 ml Output Total 200 ml 400 ml Balance 700 ml 200 ml -400 ml Intake Oral 600 ml 400 ml IV Total 100 ml Output Urine Total 200 ml 400 ml # Voids 4 # Bowel Movements 1 Result Diagram: 12/10/17 0408 12/09/17 0404 Imaging Last 24 hours Impressions Chest X-Ray 12/08/17 1217 Signed Impressions: Service Date/Time: Friday, December 08, 2017 12:49 - CONCLUSION: 1. Bibasilar streakiness consistent with atelectasis and/or infiltrates. 2. Cardiomegaly. Polo Morse MD Objective Remarks Right lower extremity: Clean dry dressings intact. Mild swelling. Distally intact sensation good capillary refills. Active dorsiflexion and plantar flexion of foot Assessment & Plan Assessment and Plan 1) Right intertrochanteric femur fracture status post IM nail POD 2 PT 50% weightbearing right lower extremity Daily dressing changes beginning POD 2 with Xeroform Primapore Lovenox Incentive spirometry Platform walker with nonweightbearing to right wrist. Case management for rehabilitation placement plan for DC to SNF when bed available Follow-up appointment with Dr. Massey or PA in 2 weeks Pawan Rucker PA/[employer] PA Dec 11, 2017 06:42
[2017-12-11] MEDS: CALCIUM/VITAMIN D 250 MG/125 U TAB PO SCH ×2 (08:39→11:26)
[2017-12-11] MEDS: CHOLECALCIFEROL (VIT D3) 5000 UNIT CAP PO SCH (08:39)
[2017-12-11] MEDS: DOCUSATE SODIUM 50 MG/SENNA 8.6 MG TAB PO SCH (08:39)
[2017-12-11] MEDS: ENOXAPARIN SODIUM 30 MG/0.3 ML SYRINGE SQ SCH (08:39)
[2017-12-11] MEDS: CARVEDILOL 3.125 MG TAB PO SCH (08:40)
[2017-12-11] MEDS ORDERED: PERI PO (12:56)
--- NOTE | 2017-12-11 13:36 | HHI.PR ---
Subjective Remarks Follow-up right hip fracture 12/09/17-patient seen and examined, status post Right hip reduction and intramedullary nail fixation and pain is currently controlled. 12/10/17-patient seen and examined, resting comfortably in the chair. Denies any significant right hip pain. No acute event overnight. 12/11/17-patient seen and examined; no complaints and stable. Looking for discharge to [facility] Objective Vitals Vital Signs Date Time Temp Pulse Resp B/P (MAP) Pulse Ox O2 Delivery O2 Flow Rate FiO2 12/11/17 12:00 Nasal Cannula 2.00 12/11/17 04:00 96.2 85 16 101/62 (75) 92 12/11/17 00:00 97.0 95 16 117/58 (77) 91 12/10/17 20:00 95.6 88 16 100/56 (71) 93 12/10/17 17:27 18 12/10/17 16:00 98.0 98 18 113/72 (86) 92 I/O 12/10/17 12/10/17 12/10/17 12/11/17 12/11/17 12/11/17 07:00 15:00 23:00 07:00 15:00 23:00 Intake Total 700 ml 400 ml Output Total 200 ml 400 ml Balance 700 ml 200 ml -400 ml Intake Oral 600 ml 400 ml IV Total 100 ml Output Urine Total 200 ml 400 ml # Voids 4 # Bowel Movements 1 Result Diagram: 12/10/17 0408 12/09/17 0404 Imaging Last Impressions Hip X-Ray 12/09/17 0000 Signed Impressions: Service Date/Time: Saturday, December 09, 2017 07:56 - CONCLUSION: 1. Status post right hip ORIF, as above. Mitchel Sadler MD Chest X-Ray 12/08/17 1217 Signed Impressions: Service Date/Time: Friday, December 08, 2017 12:49 - CONCLUSION: 1. Bibasilar streakiness consistent with atelectasis and/or infiltrates. 2. Cardiomegaly. Polo Morse MD Wrist X-Ray 12/08/17 0000 Signed Impressions: Service Date/Time: Friday, December 08, 2017 13:21 - CONCLUSION: 1. Negative examination of the wrist. Darwin Cortez MD Hip and Pelvis X-Ray 12/08/17 0000 Signed Impressions: Service Date/Time: Friday, December 08, 2017 11:37 - CONCLUSION: Acute intertrochanteric fracture of the right proximal femur. Polo Morse MD Head CT 12/08/17 0000 Signed Impressions: Service Date/Time: Friday, December 08, 2017 12:02 - CONCLUSION: 1. Diffuse cerebral atrophy. 2. No acute infarct, acute hemorrhage, mass effect or extra-axial fluid collections. Polo Morse MD Cervical Spine CT 12/08/17 0000 Signed Impressions: Service Date/Time: Friday, December 08, 2017 12:02 - CONCLUSION: 1. Moderate compression deformity involving C7 with retropulsion of the posterior wall measuring 3 mm which is indeterminate in age. Clinical correlation is recommended. 2. Mild compression deformity involving C6 which is also indeterminate in age. 3. Grade I retrolisthesis of C3 in relation to C4. 4. Mild spinal stenosis and moderate to severe bilateral foraminal narrowing at C3-4. 5. Moderate bilateral foraminal narrowing at C5-6 and C6-7. Polo Morse MD Objective Remarks GENERAL: NAD SKIN: Warm and dry. HEAD: Normocephalic. EYES: No scleral icterus. No injection or drainage. NECK: Supple, trachea midline. No JVD or lymphadenopathy. CARDIOVASCULAR: Regular rate and rhythm without murmurs, gallops, or rubs. RESPIRATORY: Breath sounds equal bilaterally. No accessory muscle use. GASTROINTESTINAL: Abdomen soft, non-tender, nondistended. MUSCULOSKELETAL: No cyanosis, or edema. Right hip repair, dressing applied. Neurovascular intact BACK: Nontender without obvious deformity. No CVA tenderness. Procedures s/p Right hip reduction and intramedullary nail fixation 12/09/17 A/P Problem List: (1) Intertrochanteric fracture of right hip ICD Code: S72.141A - Displaced intertrochanteric fracture of right femur, initial encounter for closed fracture Status: Acute Assessment and Plan 72-year-old man with Right hip pain secondary to acute right intertrochanteric proximal femur fracture s/p fall at home - s/p Right hip reduction and intramedullary nail fixation 12/09/17 Management per orthopedic surgery Pain management accordingly PT to treat and eval Right wrist pain s/p fall - xray right wrist reveals widening of the scapholunate space indicating scapholunate dissociation - Appreciate input from hand surgery and recommended outpatient follow-up Hypertension - Continue home Coreg. Resume ACEI accordingly. Compression fracture C6 and C7, indeterminate age - Patient reports history of cervical spine fracture in 1994 when he fell down a flight of stairs. - no complaints of neck pain at this time. Monitor. Anemia, normocytic, normochromic - continue to monitor DVT prophylaxis - Sohan Mandel MD Dec 11, 2017 13:36
--- NOTE | 2017-12-11 13:38 | HHI.DS ---
Discharge Summary Admission Date Dec 08, 2017 at 13:23 Discharge Date: Dec 11, 2017 Admitting Diagnosis right hip fracture (1) Intertrochanteric fracture of right hip ICD Code: S72.141A - Displaced intertrochanteric fracture of right femur, initial encounter for closed fracture Status: Acute Procedures s/p Right hip reduction and intramedullary nail fixation 12/09/17 Brief History - From Admission Written by Roxana Martinez, acting as scribe for Dr. Yepez on 12/08/17 at 13: 24. This is a 72-year-old male with past medical history significant for hypertension who presents to [facility] ED with complaints of right wrist and right hip pain status post fall at home yesterday around 1600. Patient reports he tripped and fell onto his right side breaking the fall with his right hand. Patient states he was unable to get up and laid on the floor until 9:00 this morning. Patient denies any preceding symptoms prior to the fall such as dizziness, shortness of breath or chest pain. He denies any loss of consciousness or injury to his head. He denies any nausea vomiting or abdominal pain. States he's been feeling well prior to this incident. He reports on a good day he is able to walk 2-3 blocks. In the ED, x-ray was obtained right wrist revealing widening of the scapholunate space indicating scapholunate dissociation and of the right hip revealing acute intertrochanteric fracture of the right proximal hip. CBC/BMP: 12/10/17 0408 12/09/17 0404 Significant Findings Laboratory Tests Test 12/09/17 04:04 12/10/17 04:08 Red Blood Count 3.03 MIL/MM3 (4.50-5.90) Hemoglobin 10.5 GM/DL (13.0-17.0) 8.8 GM/DL (13.0-17.0) Hematocrit 30.1 % (39.0-51.0) 26.3 % (39.0-51.0) Mean Corpuscular Hemoglobin 34.7 PG (27.0-34.0) Platelet Count 144 TH/MM3 (150-450) Neutrophils (%) (Auto) 71.4 % (16.0-70.0) Lymphocytes (%) (Auto) 8.4 % (9.0-44.0) Monocytes (%) (Auto) 10.7 % (0.0-8.0) Eosinophils (%) (Auto) 8.6 % (0.0-4.0) Lymphocytes # (Auto) 0.7 TH/MM3 (1.0-4.8) Eosinophils # (Auto) 0.7 TH/MM3 (0-0.4) Calcium Level 8.1 MG/DL (8.5-10.1) Chloride Level 108 MEQ/L (98-107) Estimat Glomerular Filtration Rate 74 ML/MIN (>89) 25-Hydroxy Vitamin D Total 20.0 ng/ML (30-100) Imaging Last Impressions Hip X-Ray 12/09/17 0000 Signed Impressions: Service Date/Time: Saturday, December 09, 2017 07:56 - CONCLUSION: 1. Status post right hip ORIF, as above. Mitchel Sadler MD Chest X-Ray 12/08/17 1217 Signed Impressions: Service Date/Time: Friday, December 08, 2017 12:49 - CONCLUSION: 1. Bibasilar streakiness consistent with atelectasis and/or infiltrates. 2. Cardiomegaly. Polo Morse MD Wrist X-Ray 12/08/17 0000 Signed Impressions: Service Date/Time: Friday, December 08, 2017 13:21 - CONCLUSION: 1. Negative examination of the wrist. Darwin Cortez MD Hip and Pelvis X-Ray 12/08/17 0000 Signed Impressions: Service Date/Time: Friday, December 08, 2017 11:37 - CONCLUSION: Acute intertrochanteric fracture of the right proximal femur. Polo Morse MD Head CT 12/08/17 0000 Signed Impressions: Service Date/Time: Friday, December 08, 2017 12:02 - CONCLUSION: 1. Diffuse cerebral atrophy. 2. No acute infarct, acute hemorrhage, mass effect or extra-axial fluid collections. Polo Morse MD Cervical Spine CT 12/08/17 0000 Signed Impressions: Service Date/Time: Friday, December 08, 2017 12:02 - CONCLUSION: 1. Moderate compression deformity involving C7 with retropulsion of the posterior wall measuring 3 mm which is indeterminate in age. Clinical correlation is recommended. 2. Mild compression deformity involving C6 which is also indeterminate in age. 3. Grade I retrolisthesis of C3 in relation to C4. 4. Mild spinal stenosis and moderate to severe bilateral foraminal narrowing at C3-4. 5. Moderate bilateral foraminal narrowing at C5-6 and C6-7. Polo Morse MD PE at Discharge GENERAL: NAD SKIN: Warm and dry. HEAD: Normocephalic. EYES: No scleral icterus. No injection or drainage. NECK: Supple, trachea midline. No JVD or lymphadenopathy. CARDIOVASCULAR: Regular rate and rhythm without murmurs, gallops, or rubs. RESPIRATORY: Breath sounds equal bilaterally. No accessory muscle use. GASTROINTESTINAL: Abdomen soft, non-tender, nondistended. MUSCULOSKELETAL: No cyanosis, or edema. Right hip repair, dressing applied. Neurovascular intact BACK: Nontender without obvious deformity. No CVA tenderness. Hospital Course Patient was admitted secondary to right hip fracture for which orthopedic surgery was consulted, and he underwent Right hip reduction and intramedullary nail fixation 12/09/17. Postoperatively, pain management was provided accordingly and physical therapy was consulted. Also secondary to right wrist pain on admission, Hand surgery was consulted however recommended outpatient follow-up. Oral antihypertensive medications were resumed accordingly. DVT and GI prophylaxis were provided. Prior to discharge, patient's conditions improved and vital remained stable. Pt Condition on Discharge: Stable Discharge Disposition: Rehab Inpatient Discharge Time: > 30 minutes Discharge Instructions DIET: Follow Instructions for: Heart Healthy Diet Activities you can perform: Regular-No Restrictions Follow up Referrals: Orthopedics - 2 Weeks @ [facility] with Iron Negron MD PCP Follow-up - 2-3 Days New Medications: Hydrocodone-Acetaminophen (Hydrocodone-Acetaminophen) 7.5 Mg-325 Mg Tab 1 TAB PO Q4H PRN for PAIN, #60 TAB 0 Refills Rivaroxaban (Xarelto) 10 Mg Tab 10 MG PO DAILY for Blood Clot Prevention for 14 Days, #14 TAB 0 Refills Sennosides-Docusate Sodium (Gnp Senna Plus 8.6-50 mg) 8.6 Mg-50 Mg Tab 1 TAB PO BID for Bowel Management, #10 TAB Continued Medications: Carvedilol (Carvedilol) 3.125 Mg Tab 3.125 MG PO BID, #60 TAB 0 Refills Sohan Cooper MD Dec 11, 2017 13:38
== END 2017-12-11 13:47 | DRG 482 ==
LOC: NEPE 11:14 → NEDA 13:23 → N06B 16:49
PROVIDERS: ADMIT Hospitalist; ATTEND Hospitalist
PROC: 0QS606Z Reposition Right Upper Femur with Intramedullary Internal Fixation Device, Open Approach (ICD-10-PCS; principal; 2017-12-09 07:18)
DX: S72.141A Displaced intertrochanteric fracture of right femur, initial encounter for closed fracture (principal); D64.9 Anemia, unspecified; S63.094A Other dislocation of right wrist and hand, initial encounter; I10 Essential (primary) hypertension; Z23 Encounter for immunization; M48.52XD Collapsed vertebra, not elsewhere classified, cervical region, subsequent encounter for fracture with routine healing; W01.0XXA Fall on same level from slipping, tripping and stumbling without subsequent striking against object, initial encounter; Y92.009 Unspecified place in unspecified non-institutional (private) residence as the place of occurrence of the external cause
CPT/HCPCS: 70450; 71045; 72125; 73110; 73502; 76000; 80048; 82306; 82550; 85014; 85018; 85025; 85610; 85730; 86850; 86900; 86901; 90686; 93005; 94150; 94664; 96361; 96374; 96375; J0131; J0690; J1170; J1580; J1650; J1885; J2270; J2405; J3010; J3370; J7030; J7050; J7120; J7613; Q2038

== ENCOUNTER 2018-07-01 06:24 | Inpatient (IN) ==
[2018-07-01] MEDS ORDERED: Sugammadex Inj 200 MG/2 ML Vial IV.PUSH ONE (07:23)
[2018-07-01] MEDS ORDERED: Chlorhexidine Gluconate 2% 1 Pack (2 Cloths) TOPICAL SCH (07:30)
[2018-07-01] MEDS ORDERED: Metoprolol Tartrate 25 MG Tablet PO SCH (07:30)
[2018-07-01] MEDS ORDERED: Chlorhexidine 4% Topical 120 APPLIC/120 ML Bottle TOPICAL SCH (07:45)
[2018-07-01] MEDS ORDERED: Vancomycin Inj 1 GM/200 ML PIGGYBACK IV.SIG SCH (08:00)
[2018-07-01] MEDS ORDERED: Sodium Chlor 0.9% Inj 500 ML IV.SIG SCH (08:00)
[2018-07-01 08:07] LABS: Baso % (Auto) 0.9 % (0.0-2.0); Eos # (Auto) 0.2 th/mm3 (0.0-0.4); Eos % (Auto) 4.5 % (0.0-4.0); Hematocrit 35.2 % (39.0-51.0); Hemoglobin 11.7 gm/dL (13.0-17.0); Lymph # (Auto) 0.6 th/mm3 (1.0-4.8); Lymph % (Auto) 14.5 % (9.0-44.0); Mean Corpuscular HGB Conc 33.3 % (32.0-36.0); Mean Corpuscular Hemoglobin 31.3 pg (27.0-34.0); Mean Corpuscular Volume 94.1 fL (80.0-100.0); Mean Platelet Volume 8.5 fL (7.0-11.0); Mono # (Auto) 0.7 th/mm3 (0.0-0.9); Mono % (Auto) 15.5 % (0.0-8.0); Neut # (Auto) 2.7 th/mm3 (1.8-7.7); Neut % (Auto) 64.6 % (16.0-70.0); Platelet Count 188 th/mm3 (150-450); Red Blood Count 3.74 mil/mm3 (4.50-5.90); Red Cell Distribution Width 14.7 % (11.6-17.2); White Blood Count 4.2 th/mm3 (4.0-11.0)
[2018-07-01 08:13] LABS: INR 1.3 Ratio; Prothrombin Time 12.8 sec (9.8-11.6)
[2018-07-01 08:27] LABS: Carbon Dioxide 26.4 meq/L (21.0-32.0); Potassium 3.3 meq/L (3.5-5.1)
[2018-07-01] MEDS ORDERED: Bupivacaine/Epinephrine Inj 0.25% 50 ML Vial ONE (09:16)
[2018-07-01] MEDS: ceFAZolin 2 GM Premix Inj 2 GM/50 ML PIGGYBACK IV.SIG SCH (09:54)
[2018-07-01] MEDS ORDERED: Morphine Inj 4 MG/ML Vial IV.PUSH PRN (10:58)
[2018-07-01] MEDS ORDERED: Spironolactone 25 MG Tablet PO SCH (11:01)
--- NOTE | 2018-07-01 11:09 | P.OP ---
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 My P.A. presence was necessary throughout this case for the manipulation and positioning of the surgical extremity. My P.A. was assisting me throughout the duration of this procedure. The skill set of a physician assistant at surgery was medically necessary to complete this procedure. During the surgical case the sales support technician was working at the back table and the physician assistant at surgery was directly assisting me. Operation and Findings: Implants used: Biomet 13 mm x 400 mm 125 troch nail Plan of activity: Toe-touch weightbearing 6 weeks Patient was seen and evaluated preoperatively. The patient has significant hip pain from right proximal femur fracture nonunion. The risk and benefits of surgery were discussed in depth with the patient to include bleeding, infection , nonunion, malunion, need for hip replacement, painful hardware, as well as medical competitions including blood clots, stroke, heart attack, and . Informed consent was obtained. Operative site was marked. Patient was brought to the operating room and placed on fracture table. IV sedation was administered by anesthesiologist. Timeout procedure was performed. Hip and leg were prepped with alcohol followed by DuraPrep and draped in the usual sterile fashion. IV antibiotics were given prior to incision. Procedure began with removal of hardware. Incisions were made through the previous scars on the right hip. The proximal lag screw was removed first. The appropriate lag screw removal device was screwed into the lag screw. The set screw was now loosened proximally. The lag screw was now removed. At this point the extraction handle for the nail was screwed into position. The distal interlocking screw was now removed. The nail was now back slapped and removed. Next, attention was turned towards reduction of fracture. Traction was applied. The leg was manipulated to achieve reduction. Fluoroscopy was used to confirm reduction. Guidepin was placed at the tip of the trochanter and advanced into the femoral canal. Fluoroscopy confirmed appropriate guidepin placement. A opening reamer was placed over the guidepin. A long ball tipped guide pin was now placed down the femoral canal into the center of the distal femur. The nail length was now measured. Fluoroscopy confirmed appropriate guidepin placement. Flexible reamers were now passed over the guidepin to ream the intramedullary canal. At this point the femoral head and neck were bone grafted. 15 cc of cancellous bone chips were now placed into long cannulas. The cannulas were placed into the femoral head through the previous path of the lag screw. The bone graft was now packed into the defect of the femoral head. The nail was attached to the insertion handle. Nail was now placed over the guidepin into the femoral canal. Fluoroscopy confirmed appropriate nail placement. Cannulas were placed through the insertion handle down to the femur. Guidepin was now placed through the femoral nail into the center of the femoral head. Fluoroscopy confirmed appropriate guidepin placement. Screw length was measured. Cannulated drill was placed over the guidepin. At this 5 cc of Ceramet cement was mixed. Once the cement was ready the cement was injected into the femoral head and neck. The lag screw was now placed. Traction was released and compression was applied. The set screw was now tightened in dynamic mode. Next, using perfect [place] technique 1 distal interlocking screws were placed. Screw holes were predrilled and screw lengths were measured. Final fluoroscopy revealed well aligned fracture with well-placed hardware. Incision was closed with 3-0 Vicryl and dae. Sterile dressings were applied. Patient was awakened and transferred to recovery room.
[2018-07-01] MEDS ORDERED: *morphine SULFATE 4 MG/ML PERIprocedure ONLY ONE ×2 (11:30→11:38)
[2018-07-01] MEDS ORDERED: Post-op Orders (for Pharmacy) OTHER STA (11:30)
[2018-07-01] MEDS ORDERED: fentaNYL Citrate Inj 100 MCG/2 ML Ampul ONE (11:38)
[2018-07-01] MEDS ORDERED: *Meperidine Inj 25 MG/ML Vial PERIprocedural Use ONLY ONE (11:46)
[2018-07-01] MEDS ORDERED: Neostigmine Inj 5 MG/5 ML Syringe IV.PUSH ONE (12:00)
[2018-07-01] MEDS ORDERED: Glycopyrrolate Inj 1 MG/5 ML Syringe IV.PUSH ONE (12:00)
[2018-07-01] MEDS ORDERED: Ketorolac Inj 30 MG/ML (IVP) Vial IV.PUSH ONE (12:00)
--- NOTE | 2018-07-01 13:47 | XR ---
EXAM DATE: 07/01/2018 1:38 PM EDT AGE/SEX: 73 years / Male INDICATIONS: Removal of hardware and revision of ORIF right femur. CLINICAL DATA: This is the patient's initial encounter. Patient reports that signs and symptoms have been present for 1 day and indicates a pain score of Nonresponsive. MEDICAL/SURGICAL HISTORY: Non-responsive. Non-responsive. COMPARISON: POI, CT HIP W/O CONTRAST, RIGHT, 06/20/2018. . FINDINGS: A single frontal intraoperative fluoroscopic view of the right femur demonstrates an intramedullary r od and a fracture deformity of the right proximal femur which is incompletely imaged on this study. CONCLUSION: Spot fluoroscopic view of the right femur as above. Electronically signed by: Attila Poole MD 07/01/2018 1:45 PM EDT
[2018-07-01] MEDS ORDERED: Furosemide 20 MG Tablet PO SCH (14:00)
[2018-07-01] MEDS: Carvedilol 6.25 MG Tablet PO SCH (16:35)
[2018-07-01] MEDS: Calcium/Vitamin D 250/125 MG Tablet PO SCH ×2 (16:35→17:39)
--- NOTE | 2018-07-01 17:56 | ECG ---
Date Performed: 07/01/2018 Time Performed: 07:43:51 PTAGE: 73 years EKG: ATRIAL FIBRILLATION INTRAVENTRICULAR CONDUCTION DELAY ABNORMAL ECG Since the PREVIOUS TRACING , no significant change noted PREVIOUS TRACIN12/08/2017 11.29 DOCTOR: Oniel Maloney Interpretating Date/Time 07/01/2018 17:55:48
[2018-07-01] MEDS: Latanoprost 0.005% Opth Drops 2.5 ML Bottle EACH EYE SCH (23:34)
[2018-07-01] MEDS: Senna/Docusate Sodium 8.6/50 MG Tablet PO SCH (23:34)
[2018-07-02] MEDS: ceFAZolin 2 GM Premix Inj 2 GM/50 ML PIGGYBACK IV.SIG SCH ×4 (02:05→11:44)
[2018-07-02] MEDS: Vitamins A,C,E/Lutein/Minerals Tablet PO SCH ×3 (06:35→20:39)
--- NOTE | 2018-07-02 06:38 | P.PNOP ---
Subjective Interval history: POD 1 s/p MAUREEN with revision IMN and bone grafting of right hip fx -doing well. pain controlled. no new complaints. out of bed to use restroom yesterday Physical Exam Vital signs: Vital Signs 07/01/18 08:06 07/01/18 11:28 07/01/18 11:45 Temperature 98.0 F 95.7 F L 96 F L Pulse Rate 88 79 68 Respiratory Rate 20 15 17 Blood Pressure 146/76 H 137/61 119/62 Pulse Oximetry 95 96 96 07/01/18 12:00 07/01/18 12:19 07/01/18 12:30 Temperature 96.2 F L Pulse Rate 68 69 Respiratory Rate 16 15 15 Blood Pressure 129/63 159/67 H 125/60 Pulse Oximetry 96 94 L 98 07/01/18 13:00 07/01/18 13:30 07/01/18 14:00 Temperature 96.5 F L 97.4 F L Pulse Rate 81 69 73 Respiratory Rate 15 15 15 Blood Pressure 109/70 114/58 L 109/57 L Pulse Oximetry 98 98 95 07/01/18 14:32 07/01/18 15:00 07/01/18 16:00 Temperature 97.5 F L Pulse Rate 79 96 H 106 H Respiratory Rate 16 17 18 Blood Pressure 113/57 L 130/58 L 95/61 L Pulse Oximetry 97 96 90 L 07/01/18 20:00 07/02/18 00:00 07/02/18 04:00 Temperature 97.4 F L 97.2 F L 97.6 F Pulse Rate 95 H 86 83 Respiratory Rate 16 17 17 Blood Pressure 91/54 L 100/61 95/55 L Pulse Oximetry 94 L 95 93 L Intake & Output 07/01/18 07/01/18 07/02/18 06:59 18:59 06:59 Intake Total 1550 / 1550 900 / 900 Output Total 300 / 300 600 / 600 Balance 1250 / 1250 300 / 300 Weight 79.5 kg 79.5 kg Intake: IV 1000 / 1000 LR 1000 mL Inj 1,000 ML @ 50 1000 / 1000 mls/hr IV.CONT .Q20H [facility] Rx#: [id number] Oral 250 / 250 900 / 900 Anesthesia Amount 300 / 300 Output: Urine 200 / 200 600 / 600 Estimated Blood Loss 100 / 100 Other: Date of Last Bowel Movement 07/31/18 Weight On Admission 79.5 kg Narrative: RLE: dressings clean and dry. intact. NVI Results - Labs CBC & Chem 7: 07/01/18 07:40 07/01/18 07:40 Laboratory Results - last 24 hr 07/01/18 07/01/18 07/01/18 07:40 07:40 07:40 WBC 4.2 RBC 3.74 L Hgb 11.7 L Hct 35.2 L MCV 94.1 MCH 31.3 MCHC 33.3 RDW 14.7 Plt Count 188 MPV 8.5 Neut % (Auto) 64.6 Lymph % (Auto) 14.5 [place] % (Auto) 15.5 H Eos % (Auto) 4.5 H Baso % (Auto) 0.9 Neut # (Auto) 2.7 Lymph # (Auto) 0.6 L [place] # (Auto) 0.7 Eos # (Auto) 0.2 Baso # (Auto) 0.0 WBC Differential . Differential Comment Auto diff final PT 12.8 H INR 1.3 Sodium 135 L Potassium 3.3 L Chloride 99 Carbon Dioxide 26.4 Anion Gap 10 BUN 9 Creatinine 0.91 Estimated GFR 81 L Random Glucose 96 Calcium 9.0 - Imaging Impressions Femur X-Ray 07/01/18 00:00 CONCLUSION: Spot fluoroscopic view of the right femur as above. Assessment and Plan - Assessment and Plan 1) Right Intertroch nonunion s/p MAUREEN with revision IMN and bonegrafting - POD 1 -TTWB -daily dressing changes POD 2 -DVT prophylaxis -work with therapy today. depending how therapy progresses will dictate home with HHC vs SNF -f/u with [facility]il or [facility] in 2 weeks
[2018-07-02 07:18] LABS: Calcium 8.5 mg/dL (8.5-10.1); Carbon Dioxide 29.9 meq/L (21.0-32.0); Potassium 4.7 meq/L (3.5-5.1)
[2018-07-02] MEDS: Carvedilol 6.25 MG Tablet PO SCH (08:21)
[2018-07-02] MEDS: Calcium/Vitamin D 250/125 MG Tablet PO SCH ×3 (08:21→18:36)
[2018-07-02] MEDS: Senna/Docusate Sodium 8.6/50 MG Tablet PO SCH ×2 (08:22→20:39)
[2018-07-02] MEDS: Enoxaparin Inj 40 MG/0.4 ML Syringe SQ SCH (10:27)
[2018-07-02] MEDS: Latanoprost 0.005% Opth Drops 2.5 ML Bottle EACH EYE SCH (23:19)
--- NOTE | 2018-07-03 07:14 | P.PNOP ---
Subjective Interval history: Resting comfortably. No new complaints. Physical Exam Vital signs: Vital Signs 07/02/18 08:00 07/02/18 09:50 07/02/18 12:00 Temperature 97.9 F 97.3 F L Pulse Rate 92 H 98 H Respiratory Rate 17 18 Blood Pressure 122/55 L 101/55 L Pulse Oximetry 92 L 93 L 96 07/02/18 16:00 07/02/18 19:00 07/02/18 23:53 Temperature 97.7 F 97.4 F L 97.7 F Pulse Rate 95 H 86 86 Respiratory Rate 17 18 18 Blood Pressure 108/60 98/57 L 95/51 L Pulse Oximetry 94 L 92 L 92 L 07/03/18 01:10 07/03/18 03:04 07/03/18 05:15 Temperature 98.1 F Pulse Rate 81 Respiratory Rate 18 Blood Pressure 106/51 L Pulse Oximetry 96 Intake & Output 07/02/18 07/03/18 07/03/18 18:59 06:59 18:59 Intake Total 1300 / 1300 480 / 480 Output Total 150 / 150 725 / 725 Balance 1150 / 1150 -245 / -245 Weight 79.5 kg Intake: Oral 1300 / 1300 480 / 480 Output: Urine 150 / 150 725 / 725 Other: # Voids 1 Date of Last Bowel Movement 06/30/18 06/30/18 # Bowel Movements 0 0 Narrative: Right lower extremity: Clean dry dressings intact. Mild swelling. Minimal pain with range of motion of hip. Distally intact sensation with good capillary refills. Active dorsiflexion and plantar flexion of foot. Results - Labs CBC & Chem 7: 07/01/18 07:40 07/02/18 06:13 Laboratory Results - last 24 hr 07/02/18 06:13 Sodium 139 Potassium 4.7 D Chloride 103 Carbon Dioxide 29.9 Anion Gap 6 BUN 16 Creatinine 1.22 Estimated GFR 58 L Random Glucose 137 H Calcium 8.5 Assessment and Plan - Assessment and Plan 1) Right Intertroch nonunion s/p MAUREEN with revision IMN and bonegrafting - POD 2 -TTWB -daily dressing changes -Xeroform and Primapore -Lovenox -work with therapy this morning. Depending how therapy progresses will dictate home with HHC vs SNF -f/u with [facility] or [facility] in 2 weeks
[2018-07-03] MEDS: Vitamins A,C,E/Lutein/Minerals Tablet PO SCH (08:57)
[2018-07-03] MEDS: Carvedilol 6.25 MG Tablet PO SCH (08:57)
[2018-07-03] MEDS: Senna/Docusate Sodium 8.6/50 MG Tablet PO SCH (08:58)
[2018-07-03] MEDS: Calcium/Vitamin D 250/125 MG Tablet PO SCH ×2 (08:58→14:35)
[2018-07-03] MEDS: Enoxaparin Inj 40 MG/0.4 ML Syringe SQ SCH (09:01)
--- NOTE | 2018-07-03 14:22 | P.DCO ---
- Physical Therapy Physical Therapy: Gait training Hip: Hip fracture, Protocol: Right Right Lower Extremity Weight Bearing: Toe touch weight bearing - Nursing Dressing changes: Daily dressing change, Xeroform, Coverderm/Primapore - Certification Need for Home Health services: I have seen patient Paco Olivera on 07/03/18. My clinical findings support the need for the requested home health care services because: Need for Home Health Services: Limited mobility due to disease progression Homebound Certification: I certify that my clinical findings support that this patient is homebound because: Homebound Certification: Post-op weakness
== END 2018-07-03 17:27 | disposition home health service (06) ==
LOC: HSDC 06:24 → EDSTATUS 09:00 → HSDI 10:58 → N06 15:32
PROVIDERS: ADMIT Orthopaedic Surgery Orthopaedic Trauma; ATTEND Orthopaedic Surgery Orthopaedic Trauma

== ENCOUNTER 2018-08-05 05:10 | Inpatient (IN) ==
[2018-08-05] MEDS ORDERED: Vancomycin Inj 1,000 MG in Sodium Chlor 0.9% Inj 250 ML IV.SIG SCH (06:00)
[2018-08-05] MEDS ORDERED: ceFAZolin 2 GM Premix Inj 2 GM/50 ML PIGGYBACK IV.SIG SCH (06:00)
[2018-08-05] MEDS ORDERED: Chlorhexidine Gluconate 2% 1 Pack (2 Cloths) TOPICAL ONE (06:00)
[2018-08-05] MEDS ORDERED: Sodium Chlor 0.9% Inj 500 ML IV.SIG SCH (06:00)
[2018-08-05] MEDS ORDERED: Chlorhexidine 4% Topical 120 APPLIC/120 ML Bottle TOPICAL SCH (06:00)
[2018-08-05] MEDS ORDERED: Metoprolol Tartrate 25 MG Tablet PO ONE (06:00)
[2018-08-05] MEDS ORDERED: fentaNYL Citrate Inj 100 MCG/2 ML Ampul ONE (06:18)
[2018-08-05] MEDS ORDERED: Famotidine PF Inj 20 MG/2 ML Vial ONE (06:18)
[2018-08-05] MEDS ORDERED: Sodium Chlor 0.9% Inj 250 ML ONE (06:25)
[2018-08-05] MEDS ORDERED: Phenylephrine/NS 1000 MCG/10ML Syringe IV.PUSH ONE (06:50)
[2018-08-05] MEDS ORDERED: Lidocaine PF 1% Inj 5 ML Syringe INFILTRATN ONE (06:50)
[2018-08-05] MEDS ORDERED: Glycopyrrolate Inj 1 MG/5 ML Syringe IV.PUSH ONE (06:50)
[2018-08-05] MEDS ORDERED: Neostigmine Inj 5 MG/5 ML Syringe IV.PUSH ONE (06:50)
[2018-08-05] MEDS ORDERED: Tranexamic Acid Inj 1,200 MG in Sodium Chlor 0.9% Inj 100 ML IV.SIG SCH (08:00)
[2018-08-05] MEDS ORDERED: Tobramycin Sulfate 1,200 MG Vial (for ortho/sterile core) OTHER ONE (08:20)
[2018-08-05] MEDS ORDERED: Spironolactone 25 MG Tablet PO PRN (09:49)
[2018-08-05] MEDS ORDERED: oxyCODONE/Acetaminophen 10/325 Tablet PO PRN (09:54)
[2018-08-05] MEDS ORDERED: Vancomycin Inj 1 GM/200 ML PIGGYBACK IV.SIG SCH (10:00)
[2018-08-05] MEDS ORDERED: CALCIUM CITRATE VITAMIN D3 PO SCH (10:00)
[2018-08-05] MEDS ORDERED: ceFAZolin Inj 2,000 MG in Sodium Chlor 0.9% Inj 80 ML IV.SIG SCH (10:00)
[2018-08-05] MEDS ORDERED: Post-op Orders (for Pharmacy) OTHER STA (10:11)
--- NOTE | 2018-08-05 10:15 | P.OP ---
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 My P.A. presence was necessary throughout this case for the manipulation and positioning of the surgical extremity. My P.A. was assisting me throughout the duration of this procedure. The skill set of a physician patient assistant was medically necessary to complete this procedure. During the surgical case the surgical services coordinator was working at the back table and the physician patient assistant was directly assisting me. Operation and Findings: Implants used: Reclaim 20 mm x 190 mm distal stem, size 24 mm by a 5 mm proximal body, +5 head, 55 Bipolar cup Plan of activity: 50% weightbearing 4 weeks Details of procedure: Procedure began with a 7-inch incision over the proximal lateral thigh. The preexisting hip incision was included. Subcutaneous tissue dissected with Bovie. Iliotibial band was split in line with the fibers. Vastus lateralis was not elevated from posterior to anterior. The hip capsule was incised. Attention was now turned towards hardware removal. The distal interlocking screw was removed. The set screw was loosened proximally. The lag screw was now removed. The proximal end of the nail was now identified. The insertion handle was screwed into the nail. The nail was now back slapped and removed. At this point the hip was dislocated. There was clear nonunion of the fracture. There was significant comminution of the metaphyseal region. Using an oscillating saw the femoral head and neck were cut and removed. The acetabulum was visualized. There was a defect in the acetabulum from the lag screw. Soft tissue was protected. The acetabulum was sequentially reamed up to size 55. A trial 55 bipolar head was placed into the cup and found to be excellent fit. Using the [employer] system, a revision style stem was utilized. The canal was sequentially reamed up to a size 20. This was found to be an excellent fit. The reamer was left into the stem as a trial. A proximal body was placed. The height of the stem was based off the greater trochanter. At this point, a trial body and neck were placed. A size 55 bipolar cup was also placed. The trial hip was now reduced. The patient's leg appeared equal. He had excellent range of motion with good stability. The trial components were now removed. A size 20 x 190-mm DePuy Reclaim stem was now impacted into the femur in appropriate position. At this point, the proximal segment was reamed using the appropriate reamers. A proximal 85 x 24- mm body was selected. This body was impacted onto the stem. Using the appropriate compression device, the proximal and distal stems were compressed together. Set screw was now placed proximally. Care was taken to keep appropriate anteversion of the femoral head and neck. A +5 head was now opened. The +5 head was placed into the 55 bipolar cup and impacted onto the stem, the hip was now reduced. The patient had excellent range of motion with good stability. The wound was then thoroughly irrigated. Wound was thoroughly irrigated. Fascial layers were closed with #1 Vicryl. Subcutaneous tissue was closed with 3-0 Vicryl and skin was closed with dae. Sterile dressings were applied. The patient was placed into a knee immobilizer. She was awakened and transferred to recovery room in stable condition.
[2018-08-05] MEDS ORDERED: *morphine SULFATE 4 MG/ML PERIprocedure ONLY ONE ×3 (10:17→10:44)
[2018-08-05] MEDS ORDERED: *Meperidine Inj 25 MG/ML Vial PERIprocedural Use ONLY ONE (10:23)
[2018-08-05] MEDS ORDERED: HYDROmorphone PF Inj 2 MG/ML Vial ONE (10:59)
[2018-08-05] MEDS ORDERED: Furosemide 20 MG Tablet PO PRN (11:15)
[2018-08-05] MEDS: Morphine Inj 4 MG/ML Vial IV.PUSH PRN (11:58)
[2018-08-05] MEDS: Calcium/Vitamin D 250/125 MG Tablet PO SCH ×2 (13:59→17:47)
--- NOTE | 2018-08-05 14:48 | XR ---
EXAM DATE: 08/05/2018 2:45 PM EDT AGE/SEX: 73 years / Male INDICATIONS: Post op right total hip replacement. CLINICAL DATA: This is the patient's initial encounter. Patient reports that signs and symptoms have been present for 1 day and indicates a pain score of 5/10. MEDICAL/SURGICAL HISTORY: Hypertension. A-fib. . Prior right hip surgery. COMPAR[place] [facility] [place] (AP&LAT 2/3VWS) W AP PELVIS, 12/24/2017. . FINDINGS: Right hip prosthesis in place. There is good alignment of the bony structures. There is good alignmen t of the hip prosthesis. Postsurgical changes are demonstrated. CONCLUSION: Good position and alignment on this postoperative study. Electronically signed by: Stalin Smart MD 08/05/2018 2:47 PM EDT
[2018-08-05] MEDS: ceFAZolin 2 GM Premix Inj 2 GM/100 ML BAG IV.SIG SCH ×2 (15:21→23:59)
[2018-08-05] MEDS: Latanoprost 0.005% Opth Drops 2.5 ML Bottle EACH EYE SCH (17:47)
[2018-08-05] MEDS: Vancomycin Inj 1,000 MG in Sodium Chlor 0.9% Inj 250 ML IV.SIG SCH (17:47)
[2018-08-05] MEDS: Senna/Docusate Sodium 8.6/50 MG Tablet PO SCH (20:01)
[2018-08-05] MEDS ORDERED: VIT C E ZN COPPR LUTEIN ZEAXAN PO SCH (21:00)
[2018-08-06 03:48] LABS: Hematocrit 25.5 % (39.0-51.0); Hemoglobin 8.5 gm/dL (13.0-17.0)
[2018-08-06] MEDS: Vancomycin Inj 1,000 MG in Sodium Chlor 0.9% Inj 250 ML IV.SIG SCH (05:25)
[2018-08-06] MEDS: ceFAZolin 2 GM Premix Inj 2 GM/100 ML BAG IV.SIG SCH ×3 (06:34→22:10)
--- NOTE | 2018-08-06 06:34 | P.PNOP ---
Subjective Interval history: Ryan is awake and alert. Pain controlled. Resting comfortably. Physical Exam Vital signs: Vital Signs 08/05/18 06:51 08/05/18 10:11 08/05/18 10:30 Temperature 97.9 F 97.5 F L Pulse Rate 93 H 87 79 Respiratory Rate 20 18 18 Blood Pressure 142/78 H 129/75 128/65 Pulse Oximetry 95 95 95 08/05/18 10:45 08/05/18 11:00 08/05/18 11:15 Temperature 97.5 F L Pulse Rate 80 79 79 Respiratory Rate 18 18 18 Blood Pressure 112/56 L 109/60 100/60 Pulse Oximetry 95 95 95 08/05/18 12:00 08/05/18 12:09 08/05/18 16:00 Temperature 96.5 F L 96.8 F L Pulse Rate 81 98 H Respiratory Rate 16 18 Blood Pressure 110/63 122/78 Pulse Oximetry 94 L 100 08/05/18 20:51 08/05/18 23:43 08/06/18 04:26 Temperature 97.9 F 97.8 F 98.1 F Pulse Rate 92 H 99 H 88 Respiratory Rate 18 18 18 Blood Pressure 110/59 L 95/53 L 102/54 L Pulse Oximetry 98 97 96 Intake & Output 08/05/18 08/05/18 08/06/18 06:59 18:59 06:59 Intake Total 2440 / 2440 460 / 460 Output Total 1025 / 1025 500 / 500 Balance 1415 / 1415 -40 / -40 Weight 79.5 kg 79.5 kg Intake: IV 800 / 800 100 / 100 Cyklokapron Inj 1,200 MG In NS 200 / 200 Inj 100 ML @ 200 mls/hr IV.SIG ONCE [facility] Rx#:[id number] Vancomycin Inj 1,000 MG In NS 500 / 500 Inj 250 ML @ 250 mls/hr IV.SIG Q12H [facility] Rx#:[id number] Ancef 2 GM Premix Inj 2 gm In 100 / 100 100 / 100 100 ml @ 200 mls/hr IV.SIG Q8H [facility] Rx#:[id number] Oral 840 / 840 360 / 360 Anesthesia Amount 800 / 800 Output: Urine 525 / 525 500 / 500 Estimated Blood Loss 500 / 500 Other: Date of Last Bowel Movement 08/04/18 # Bowel Movements 0 Weight On Admission 79.5 kg Narrative: Patient is awake and alert Clean dry dressing right hip Thigh and calf compartments soft Sensation intact right foot Right foot warm and well-perfused Results - Labs CBC & Chem 7: 08/06/18 02:50 Laboratory Results - last 24 hr 08/05/18 08/06/18 06:05 02:50 Hgb 8.5 L Hct 25.5 L Blood Type B Positive Antibody Screen Negative - Imaging Impressions Hip X-Ray 08/05/18 09:50 CONCLUSION: Good position and alignment on this postoperative study. Assessment and Plan - Assessment and Plan Postop day #1 conversion to right hip arthroplasty 50% weightbearing right leg Xarelto 10 mg 7 days, then resume Xarelto 20 mg daily SCDs and BARBARA mancia Plan on [facility]
[2018-08-06] MEDS: Acetaminophen 325 MG Tablet PO PRN (06:35)
[2018-08-06] MEDS: Senna/Docusate Sodium 8.6/50 MG Tablet PO SCH ×2 (08:59→20:20)
[2018-08-06] MEDS: Calcium/Vitamin D 250/125 MG Tablet PO SCH ×3 (08:59→17:23)
[2018-08-06] MEDS: Carvedilol 6.25 MG Tablet PO SCH (08:59)
[2018-08-06] MEDS: Rivaroxaban 10 MG Tablet PO SCH (09:00)
[2018-08-06] MEDS: Loratadine/Pseudoephedrine 12HR Tablet PO SCH (09:00)
[2018-08-06] MEDS: oxyCODONE/Acetaminophen 10/325 Tablet PO PRN ×2 (12:23→18:24)
[2018-08-06] MEDS: Morphine Inj 4 MG/ML Vial IV.PUSH PRN ×2 (16:09→19:51)
[2018-08-06] MEDS: Latanoprost 0.005% Opth Drops 2.5 ML Bottle EACH EYE SCH (17:23)
[2018-08-07 06:16] LABS: Hematocrit 22.7 % (39.0-51.0); Hemoglobin 7.5 gm/dL (13.0-17.0)
--- NOTE | 2018-08-07 06:35 | P.PNOP ---
Subjective Interval history: States he did well with physical therapy yesterday, pain was managed. Still needing assistance and thinks that rehab would be most appropriate Physical Exam Vital signs: Vital Signs 08/06/18 07:24 08/06/18 08:00 08/06/18 15:20 Temperature 98.4 F Pulse Rate 87 Respiratory Rate 16 16 18 Blood Pressure 95/53 L Pulse Oximetry 94 L 08/06/18 16:00 08/06/18 19:46 08/06/18 20:00 Temperature 97.7 F 98.1 F Pulse Rate 104 H 99 H Respiratory Rate 18 16 Blood Pressure 114/57 L 108/56 L Pulse Oximetry 96 95 92 L 08/07/18 00:00 Temperature 97.7 F Pulse Rate 100 H Respiratory Rate 18 Blood Pressure 106/58 L Pulse Oximetry 95 Intake & Output 08/06/18 08/06/18 08/07/18 06:59 18:59 06:59 Intake Total 3010 / 3010 1900 / 1900 100 / 100 Output Total 500 / 500 550 / 550 Balance 2510 / 2510 1350 / 1350 100 / 100 Weight 79.5 kg Intake: IV 2650 / 2650 100 / 100 100 / 100 LR 1000 mL Inj 1,000 ML @ 50 1000 / 1000 mls/hr IV.CONT .Q20H [facility] Rx#: [id number] LR 1000 mL Inj 1,000 ML @ 30 1000 / 1000 mls/hr IV.SIG .Q24H [facility] Rx#: [id number] Vancomycin Inj 1,000 MG In NS 250 / 250 Inj 250 ML @ 250 mls/hr IV.SIG Q12H [facility] Rx#:[id number] Ancef 2 GM Premix Inj 2 gm In 200 / 200 100 / 100 100 / 100 100 ml @ 200 mls/hr IV.SIG Q8H [facility] Rx#:[id number] Oral 360 / 360 1800 / 1800 Output: Urine 500 / 500 550 / 550 Other: # Voids 3 Date of Last Bowel Movement 08/04/18 08/04/18 # Bowel Movements 0 Narrative: Right lower extremity: Clean dry dressings intact. Immobilizer in place. Intact sensation distally with active dorsiflexion plantar flexion of foot. Results - Labs CBC & Chem 7: 08/07/18 05:50 Laboratory Results - last 24 hr 08/07/18 05:50 Hgb 7.5 L Hct 22.7 L Assessment and Plan - Assessment and Plan Postop day #2 conversion to right hip arthroplasty 50% weightbearing right leg with posterior hip precautions Xarelto 10 mg 7 days, then resume Xarelto 20 mg daily SCDs and BARBARA mancia Incentive spirometry Plan on [facility] when bed available Follow-up with Dr. Negron or PA in 2 weeks
[2018-08-07] MEDS: ceFAZolin 2 GM Premix Inj 2 GM/100 ML BAG IV.SIG SCH (06:40)
[2018-08-07] MEDS: Senna/Docusate Sodium 8.6/50 MG Tablet PO SCH ×2 (08:50→21:07)
[2018-08-07] MEDS: Rivaroxaban 10 MG Tablet PO SCH (08:50)
[2018-08-07] MEDS: Carvedilol 6.25 MG Tablet PO SCH (08:50)
[2018-08-07] MEDS: Calcium/Vitamin D 250/125 MG Tablet PO SCH ×3 (08:50→17:45)
[2018-08-07] MEDS: Loratadine/Pseudoephedrine 12HR Tablet PO SCH (08:51)
[2018-08-07] MEDS: oxyCODONE/Acetaminophen 10/325 Tablet PO PRN ×2 (08:51→15:51)
[2018-08-07] MEDS ORDERED: Sodium Chlor 0.9% Inj 250 ML IV.SIG SCH (10:00)
[2018-08-07] MEDS: Latanoprost 0.005% Opth Drops 2.5 ML Bottle EACH EYE SCH (17:45)
--- NOTE | 2018-08-08 06:48 | P.PNOP ---
Subjective Interval history: Resting comfortably with no new complaints Physical Exam Vital signs: Vital Signs 08/07/18 08:00 08/07/18 11:01 08/07/18 11:19 Temperature 98 F 98.0 F 98.1 F Pulse Rate 99 H 123 H 88 Respiratory Rate 18 18 Blood Pressure 123/58 L 90/51 L 91/53 L Pulse Oximetry 93 L 90 L 96 08/07/18 12:00 08/07/18 12:54 08/07/18 13:10 Temperature 97.4 F L 97.3 F L 97.6 F Pulse Rate 80 80 79 Respiratory Rate 18 18 18 Blood Pressure 91/54 L 105/56 L 102/54 L Pulse Oximetry 99 99 79 L 08/07/18 15:51 08/07/18 16:00 08/07/18 20:00 Temperature 97.4 F L 98 F 97.8 F Pulse Rate 82 85 Respiratory Rate 16 18 18 Blood Pressure 105/55 L 111/65 99/54 L Pulse Oximetry 98 98 96 08/08/18 00:00 Temperature 97.8 F Pulse Rate 106 H Respiratory Rate 18 Blood Pressure 111/56 L Pulse Oximetry 95 Intake & Output 08/07/18 08/07/18 08/08/18 06:59 18:59 06:59 Intake Total 100 / 100 1140 / 1140 500 / 500 Output Total 250 / 250 450 / 450 Balance 100 / 100 890 / 890 50 / 50 Weight 79.5 kg Intake: IV 100 / 100 100 / 100 Ancef 2 GM Premix Inj 2 gm In 100 / 100 100 / 100 100 ml @ 200 mls/hr IV.SIG Q8H [facility] Rx#:[id number] Oral 240 / 240 500 / 500 Intake (Blood Product) Amt 800 / 800 Rbc As-3 Leukoreduced Unit 400 / 400 [id number] Rbc As-3 Leukoreduced Unit 400 / 400 [id number] Output: Urine 250 / 250 450 / 450 Other: # Voids 1 2 Date of Last Bowel Movement 08/04/18 08/09/18 # Bowel Movements 2 Narrative: Right lower extremity: Clean dry dressings intact. Immobilizer in place. Intact sensation distally with active dorsiflexion plantar flexion of foot. Results - Labs CBC & Chem 7: 08/07/18 05:50 Laboratory Results - last 24 hr 08/07/18 09:37 MTS Gel Crossmatch See Detail Assessment and Plan - Assessment and Plan Postop day #3 conversion to right hip arthroplasty 50% weightbearing right leg with posterior hip precautions Xarelto 10 mg 7 days, then resume Xarelto 20 mg daily SCDs and BARBARA hose Give 2 units of blood yesterday. Waiting for H&H this morning Incentive spirometry Plan on [facility] when bed available Follow-up with Dr. Negron or PA in 2 weeks
[2018-08-08 07:04] LABS: Hematocrit 26.6 % (39.0-51.0); Hemoglobin 8.9 gm/dL (13.0-17.0)
[2018-08-08] MEDS: Acetaminophen 325 MG Tablet PO PRN (09:52)
[2018-08-08] MEDS: Senna/Docusate Sodium 8.6/50 MG Tablet PO SCH (09:53)
[2018-08-08] MEDS: Carvedilol 6.25 MG Tablet PO SCH (09:53)
[2018-08-08] MEDS: Rivaroxaban 10 MG Tablet PO SCH (09:53)
[2018-08-08] MEDS: Loratadine/Pseudoephedrine 12HR Tablet PO SCH (09:53)
[2018-08-08] MEDS: Calcium/Vitamin D 250/125 MG Tablet PO SCH (09:53)
[2018-08-08 10:40] VITALS: RESP 16
[2018-08-08 14:28] VITALS: BP 114/60; PULSE 88; TEMP 97.3; O2SAT 93
--- NOTE | 2018-08-28 17:25 | P.DS ---
Date of admission: 08/05/18 09:50 Primary care physician: PROVIDER NON STAFF Attending physician on discharge: Iron Massey Brief History from admission: Paco is a 73-year-old male who had a previous intertrochanteric femur fracture. He was fixed with a intramedullary nail. A due to a nonunion and continued collapse of the femoral neck intertrochanteric region the proximal interlocking screw appears to the femoral head and was creating painful hardware irritation along the acetabulum. Due to the nonunion is recommended that surgery be performed to remove hardware and convert to a right hip hemiarthroplasty. 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 Procedure proceeds without any complications and is transferred in stable condition to PACU. After recovering his transferred to [address] [place] [address] where he remains hemodynamically stable and pain is controlled. He continues to progress well with physical therapy and is discharged on 08/08/2018. - Time Spent with Patient Total time spent providing and/or coordinating discharge services: Greater than 30 minutes - Quality: VTE Deep Vein Thrombosis/Pulmonary Embolism Present on Admission: No Exam Narrative: Right lower extremity: Clean dry dressings intact. Immobilizer in place. Intact sensation distally with active dorsiflexion plantar flexion of foot. Results Procedures completed during hospitalization: right hip hemiarthroplasty - Impressions ITS Impressions Hip X-Ray 08/05/18 09:50 CONCLUSION: Good position and alignment on this postoperative study. Discharge Plan - Discharge Disposition Patient Disposition: Discharge to SNF - Discharge Condition Condition: Good - Discharge Order Discharge Orders: Discharge Order (Routine); Ordered 08/08/18 Ordered By: Alok Powers - Physicians Team Primary Care Provider: NON STAFF,PROVIDER Attending Provider: Iron Massey Other Providers: ; Iron Massey MD ; [facility] - Rxs /Orders / Referrals /Forms Prescriptions: New oxycodone-acetaminophen [Percocet] 10-325 mg Tablet 1 tab PO Q4H PRN (Reason: Acute Pain) Qty: 42 RF: 0 rivaroxaban [Xarelto] 10 mg Tablet 10 mg PO DAILY Qty: 21 RF: 0 Continue calcium citrate-vitamin D3 315-250 mg-unit Tablet 1 tab PO QAM carvedilol 6.25 mg Tablet 6.25 mg PO DAILY cholecalciferol (vitamin D3) [Vitamin D3] 5,000 unit Tablet 5,000 unit PO DAILY furosemide 20 mg Tablet 20 mg PO DAILY PRN (Reason: Edema) guaifenesin 200 mg Tablet 200 mg PO Q4H PRN (Reason: Congestion) latanoprost 0.005 % Drops 1 drp OPHTHALMIC (EYE) QPM loratadine-pseudoephedrine [Allergy Relief,Nasal Decongest] 10-240 mg Tablet Extended Release 24 Hr 1 tab PO DAILY spironolactone 25 mg Tablet 25 mg PO DAILY PRN (Reason: Edema) vit C,O-Dy-tdoyv-lutein-zeaxan [PreserVision AREDS-2] 272-240-79-1 mg-unit-mg -mg Capsule 1 tab PO BID Qty: 0 RF: 0 Discontinued oxycodone-acetaminophen [Percocet] 7.5-325 mg tablet 1 tab PO Q4H PRN (Reason: Pain) rivaroxaban [Xarelto] 20 mg Tablet 20 mg PO DAILY Referrals: Iron Massey MD [Physician] - See Instructions (2 weeks) NON STAFF,PROVIDER [Primary Care Provider] - See Instructions - Discharge Instructions Patient Printed Instructions: Oxycodone/Acetaminophen (By mouth), Laxative, Stool Softeners (By mouth), Rivaroxaban (By mouth), How to Choose and Use a Walker (GEN), How to Use a Bedside Commode (GEN), Surgical Site Infections (DC) , Precautions after Total Joint Replacement Surgery (DC), How To Wash Your Hands (DC), Fall Prevention (DC), Total Hip Replacement (DC), How to Transfer a Person Safely (DC), Deep Vein Thrombosis Prevention (DC) Additional Instructions: FOLLOW UP WITH DR MASSEY IN 2 WEEKS 50% WEIGHT BEARING TO RIGHT LEG POSTERIOR HIP PRECAUTIONS MAINTAIN SURGICAL DRESSING FOR 6 DAYS AND CHANGE DAILY WITH PRIMAPORE, ENSURE SURGICAL TAPE STAYS IN PLACE - Post Discharge Care Plan Care Plan Goals: Discharge Care Plan Goals for Total Hip Replacement You had a hip replacement surgery. This means your natural hip was replaced with an artificial joint (prosthesis). You may be recovering at home or in a rehabilitation facility. Either way, you must take care of your new hip. Here are some goals to help you heal well. Directions to Meet your Goals: 1. Activity & Exercises: * Take pain medicine as directed by your doctor. * Dont drive until your doctor says its OK. And never drive while taking opioid pain medicine. * Wear the support stockings you were given in the hospital as directed by your surgeon. * Dont sit for more than 30 to 45 minutes at one time. * Dont lean forward while sitting. * Dont cross your legs. * Keep your feet flat on the floor. Dont turn your foot or leg inward. This stresses your hip joint. * Use an elevated toilet seat for 6 weeks after surgery. * Nap if you are tired, but dont stay in bed all day. * Sit on a firm cushion when you ride in a car and avoid sitting too low. Try not to bend your hip too much when getting in and out of the car. 2. Prevent Falls/Injury: * Follow your doctors orders regarding how much weight to put on the affected leg. * Dont bend at the hip when you bend over. Don't bend at the waist to put on socks and shoes. And avoid picking up items from the floor. * Use a cane, crutches, a walker, or handrails until your balance, flexibility, and strength improve. And remember to ask for help from others when you need it. * Free up your hands so that you can use them to keep balance. Use a felipe pack , apron, or pockets to carry things. * Arrange your household to keep the items you need handy. Keep everything else out of the way. * Remove items that may cause you to fall, such as throw rugs and electrical cords. * Use nonslip bath mats, grab bars, an elevated toilet seat, and a shower chair in your bathroom * Sit on a shower stool or chair when you shower to keep from falling. 3. Precautions: * Prevent infection. Any infection will need to be treated immediately. Call your doctor right away if you think you might have an infection. * Tell your dentist that you have an artificial joint and take antibiotics as prescribed before any dental work. * Tell all your healthcare providers about your artificial joint before any medical procedure. * Maintain a healthy weight. Get help to lose any extra pounds. Added body weight puts stress on the joints. 4. Incision Care: * Prevent infection by washing your hands often. If an infection occurs, it will need to be treated right away. * Call your doctor right away if you think you may have an infection. Symptoms include a fever or an incision that leaks white, green, or yellow fluid. * Don't soak your incision in water until your doctor says its OK. This means no hot tubs, bathtubs, or swimming pools. * Follow your doctor's instructions for changing the dressing. * Dont rub the incision, or apply creams or lotions to it. * If you notice any redness or drainage around the bandage site, contact your surgeon's office immediately. 5. Follow-Up: Do Not miss your follow-up appointment. Keep up with all your appointments and yearly check ups When to call your doctor: Call your doctor right away if you have: Hip pain gets worse Pain or swelling in your calf or leg not related to your incision Tenderness or redness in your calf Fever of 100.4F (38C) or higher, or as directed by your healthcare provider Shaking chills Swelling or redness at the incision site gets worse Fluid draining from the incision Call 911: Call 911 right away if you have: Chest pain Shortness of breath Any pain or tenderness in your calf
== END 2018-08-08 16:35 ==
LOC: HSDC 05:10 → N06 09:50
PROVIDERS: ADMIT Orthopaedic Surgery Orthopaedic Trauma; ATTEND Orthopaedic Surgery Orthopaedic Trauma
PROC: [UNRECOGNIZED PROCEDURE] (2018-08-05 06:50)